=== PATIENT | female | born 1940 | race Two or more races ===

== ENCOUNTER 2017-09-28 13:13 | Emergency (ER) | payer OTHER, MEDICAID ==
[2017-09-28 13:43] LABS: ADD MAN DIFF? NO
[2017-09-28] MEDS: SOD CHLORIDE 0.9% 1,000 ML IV (13:44)
[2017-09-28 13:45] LABS: WHITE BLOOD COUNT 7.5 10^3/ul (4.8-10.8)
[2017-09-28 13:45] LABS: BASOPHILS % 0.1 % (0.0-2.0); EOSINOPHILS # 0.3 10^3/ul (0.0-0.5); EOSINOPHILS % 4.6 % (0.0-7.0); HEMATOCRIT 35.9 % (37.0-47.0); LYMPHOCYTES # 2.3 10^3/ul (0.8-2.9); LYMPHOCYTES % 30.1 % (15.0-51.0); MEAN CORPUSCULAR HEMOGLOBIN 29.8 pg (29.0-33.0); MEAN CORPUSCULAR HGB CONC 33.4 g/dl (32.0-37.0); MEAN CORPUSCULAR VOLUME 89.1 fl (82.0-101.0); MONOCYTE # 0.7 10^3/ul (0.3-0.9); MONOCYTES % 9.4 % (0.0-11.0); NEUTROPHIL # 4.2 10^3/ul (1.6-7.5); NEUTROPHILS % 55.5 % (39.0-77.0); PLATELET COUNT 221 10^3/UL (140-415); RED BLOOD COUNT 4.03 10^6/ul (4.20-5.40); RED CELL DISTRIBUTION WIDTH 13.6 % (11.5-14.5)
[2017-09-28] MEDS: KETOROLAC 15 MG INJ IV (13:45)
[2017-09-28] MEDS: ONDANSETRON 4 MG INJ IV (13:45)
[2017-09-28 14:05] LABS: ALANINE AMINOTRANSFERASE 30 IU/L (13-69); ALBUMIN 3.7 g/dl (3.3-4.9); ALBUMIN/GLOBULIN RATIO 1.12; ALKALINE PHOSPHATASE 118 IU/L (42-121); ANION GAP 20 (8-16); ASPARTATE AMINO TRANSFERASE 16 IU/L (15-46); BILIRUBIN,INDIRECT 0.2 mg/dl (0-1.1); BILIRUBIN,TOTAL 0.2 mg/dl (0.2-1.3); BLOOD UREA NITROGEN 48 mg/dl (7-20); CALCIUM 8.7 mg/dl (8.4-10.2); CARBON DIOXIDE 21 mmol/L (21-31); CHLORIDE 109 mmol/L (97-110); CREATININE 1.46 mg/dl (0.44-1.00); GLUCOSE 141 mg/dl (70-220); LIPASE 39 U/L (23-300); POTASSIUM 4.4 mmol/L (3.5-5.1); SODIUM 146 mmol/L (135-144)
== END 2017-09-28 16:19 | disposition home or self-care (01) ==
LOC: E/R 13:13
DX: K52.9 Noninfective gastroenteritis and colitis, unspecified (principal); E86.0 Dehydration; E03.9 Hypothyroidism, unspecified; R11.10 Vomiting, unspecified; I12.9 Hypertensive chronic kidney disease with stage 1 through stage 4 chronic kidney disease, or unspecified chronic kidney disease; N18.9 Chronic kidney disease, unspecified; E11.22 Type 2 diabetes mellitus with diabetic chronic kidney disease; Z79.84 Long term (current) use of oral hypoglycemic drugs; Z79.82 Long term (current) use of aspirin
CPT/HCPCS: 36415; 74176; 80053; 83690; 85025; 96374; 96375; 99285-25

== ENCOUNTER 2018-11-03 20:00 | Inpatient (IN) | payer MEDICAID, OTHER ==
[2018-11-03] MEDS: PIPER-TAZO 3.375 GM IV (PMX) 100 ML IVPB (23:18)
[2018-11-03] MEDS: ONDANSETRON 4 MG INJ IV (23:18)
[2018-11-03] MEDS: SOD CHLORIDE 0.9% 500 ML IV (23:19)
[2018-11-03] MEDS: morphine 4 MG/ML VIAL IV (23:19)
[2018-11-03 23:25] LABS: ADD MAN DIFF? NO
[2018-11-03 23:26] LABS: BASOPHIL # 0.1 10^3/ul (0.0-0.1); BASOPHILS % 0.6 % (0.0-2.0); EOSINOPHILS # 0.2 10^3/ul (0.0-0.5); EOSINOPHILS % 1.7 % (0.0-7.0); HEMATOCRIT 39.4 % (37.0-47.0); HEMOGLOBIN 12.2 g/dl (12.0-16.0); LYMPHOCYTES # 1.9 10^3/ul (0.8-2.9); LYMPHOCYTES % 20.8 % (15.0-51.0); MEAN CORPUSCULAR HEMOGLOBIN 28.7 pg (29.0-33.0); MEAN CORPUSCULAR VOLUME 92.7 fl (82.0-101.0); MEAN PLATELET VOLUME 10.4 fl (7.4-10.4); MONOCYTE # 0.7 10^3/ul (0.3-0.9); MONOCYTES % 7.9 % (0.0-11.0); NEUTROPHIL # 6.3 10^3/ul (1.6-7.5); NEUTROPHILS % 67.8 % (39.0-77.0); PLATELET COUNT 312 10^3/UL (140-415); RED BLOOD COUNT 4.25 10^6/ul (4.20-5.40); RED CELL DISTRIBUTION WIDTH 13.4 % (11.5-14.5)
[2018-11-03 23:26] LABS: WHITE BLOOD COUNT 9.3 10^3/ul (4.8-10.8)
[2018-11-03 23:37] LABS: ADD UMIC NO; UR ASCORBIC ACID NEGATIVE (NEGATIVE); UR BILIRUBIN (Dip) NEGATIVE (NEGATIVE); UR BLOOD (Dip) NEGATIVE (NEGATIVE); UR CLARITY CLEAR (CLEAR); UR COLOR STRAW (YELLOW); UR GLUCOSE (Dip) 3+ mg/dL (NEGATIVE); UR KETONES (Dip) NEGATIVE (NEGATIVE); UR LEUKOCYTE ESTERASE (Dip) NEGATIVE Leu/ul (NEGATIVE); UR NITRITE (Dip) NEGATIVE (NEGATIVE); UR SPECIFIC GRAVITY (Dip) 1.017 (1.003-1.030); UR TOTAL PROTEIN (Dip) NEGATIVE (NEGATIVE); UR UROBILINOGEN (Dip) NEGATIVE (NEGATIVE)
[2018-11-03 23:44] LABS: MAGNESIUM 2.2 mg/dl (1.7-2.5)
[2018-11-03 23:44] LABS: PHOSPHORUS 4.5 mg/dl (2.5-4.9)
[2018-11-03 23:45] LABS: ALANINE AMINOTRANSFERASE 20 IU/L (13-69); ALBUMIN 3.1 g/dl (3.3-4.9); ALBUMIN/GLOBULIN RATIO 1.06; ALKALINE PHOSPHATASE 222 IU/L (42-121); ANION GAP 8 (5-13); ASPARTATE AMINO TRANSFERASE 15 IU/L (15-46); BILIRUBIN,INDIRECT 0.2 mg/dl (0-1.1); BILIRUBIN,TOTAL 0.2 mg/dl (0.2-1.3); BLOOD UREA NITROGEN 46 mg/dl (7-20); CALCIUM 8.4 mg/dl (8.4-10.2); CARBON DIOXIDE 22 mmol/L (21-31); CHLORIDE 102 mmol/L (97-110); CREATININE 1.37 mg/dl (0.44-1.00); LIPASE 38 U/L (23-300); POTASSIUM 4.8 mmol/L (3.5-5.1); SODIUM 132 mmol/L (135-144)
[2018-11-03 23:47] LABS: MODE ROOM AIR; MetHgb Venous 0.2 %; Sample Type Blood venous; Site VENOUS LINE; Venous COHb 0.9 %; Venous Fraction OxyHgb 56.3 %; Venous Oxygen Sat 56.9 mmHG (55.0-75.0); Venous Total Hemglobin 11.7 g/dl
[2018-11-03] MEDS ORDERED: D10/0.45% NACL + KCL 30 MEQ 1,000 ML IV (23:49)
[2018-11-03] MEDS ORDERED: NS + KCL 40 MEQ 1,000 ML IV (23:49)
[2018-11-03] MEDS ORDERED: SOD CHLORIDE 0.9% 1,000 ML IV (23:49)
[2018-11-03] MEDS ORDERED: D10/0.45% NACL + KCL 40 MEQ 1,000 ML IV (23:49)
[2018-11-03] MEDS ORDERED: DEXTROSE 10%/0.45% NACL 1,000 ML IV (23:49)
[2018-11-03] MEDS ORDERED: NS + KCL 30 MEQ 1,000 ML IV (23:49)
[2018-11-03 23:51] LABS: GLUCOSE 620 mg/dl (70-220)
[2018-11-04] MEDS ORDERED: INSULIN REGULAR, HUMAN 100 UNIT in SOD CHLORIDE 0.9% 100 ML IV
[2018-11-04] MEDS: LACTATED RINGER'S 760 ML IV (00:05)
[2018-11-04] MEDS: VANCOMYCIN 1 GM (PMX) 250 ML IVPB (00:05)
[2018-11-04] MEDS: SOD CHLORIDE 0.9% 760 ML IV (00:05)
[2018-11-04] MEDS: SOD CHLORIDE 0.9% 1,000 ML IV ×2 (01:19→13:37)
[2018-11-04] MEDS ORDERED: VANCOMYCIN IV PER PHARMACY XX (01:30)
[2018-11-04] MEDS ORDERED: DEXTROSE 50% 50 ML SYRINGE IV ×6 (01:30→06:00)
[2018-11-04] MEDS: ONDANSETRON 4 MG INJ IV ×2 (02:12→06:47)
[2018-11-04] MEDS: morphine 4 MG/ML VIAL IV ×2 (02:13→06:48)
[2018-11-04] MEDS: ACCU-CHEK XX ×5 (03:17→06:29)
[2018-11-04] MEDS: INSULIN HUMAN REGULAR 100 UNIT in SOD CHLORIDE 0.9% 99 ML IV (03:24)
[2018-11-04 05:49] LABS: ADD MAN DIFF? NO
[2018-11-04 05:52] LABS: WHITE BLOOD COUNT 8.5 10^3/ul (4.8-10.8)
[2018-11-04 05:52] LABS: BASOPHIL # 0.1 10^3/ul (0.0-0.1); BASOPHILS % 0.7 % (0.0-2.0); EOSINOPHILS # 0.2 10^3/ul (0.0-0.5); EOSINOPHILS % 1.9 % (0.0-7.0); HEMATOCRIT 35.2 % (37.0-47.0); HEMOGLOBIN 11.1 g/dl (12.0-16.0); LYMPHOCYTES % 23.3 % (15.0-51.0); MEAN CORPUSCULAR HEMOGLOBIN 28.8 pg (29.0-33.0); MEAN CORPUSCULAR HGB CONC 31.5 g/dl (32.0-37.0); MEAN CORPUSCULAR VOLUME 91.2 fl (82.0-101.0); MONOCYTE # 0.8 10^3/ul (0.3-0.9); MONOCYTES % 8.8 % (0.0-11.0); NEUTROPHIL # 5.4 10^3/ul (1.6-7.5); NEUTROPHILS % 63.9 % (39.0-77.0); PLATELET COUNT 278 10^3/UL (140-415); RED BLOOD COUNT 3.86 10^6/ul (4.20-5.40); RED CELL DISTRIBUTION WIDTH 13.3 % (11.5-14.5)
[2018-11-04] MEDS: PIPER-TAZO 3.375 GM IV (PMX) 100 ML IVPB ×3 (05:57→17:08)
[2018-11-04] MEDS ORDERED: PANTOPRAZOLE 40 MG INJ IV (06:00)
[2018-11-04] MEDS ORDERED: GLUCOSE GEL 15 GRAM TUBE PO ×2 (06:00)
[2018-11-04] MEDS ORDERED: GLUCAGON 1 MG INJ IM (06:00)
[2018-11-04] MEDS ORDERED: GLUCOSE GEL 15 GRAM TUBE BUCCAL (06:00)
[2018-11-04] MEDS: INSULIN GLARGINE [LANTus] (100 UNITS/ML) SYG SC (06:28)
[2018-11-04 06:33] LABS: ALANINE AMINOTRANSFERASE 21 IU/L (13-69); ALBUMIN 2.5 g/dl (3.3-4.9); ALBUMIN/GLOBULIN RATIO 0.92; ALKALINE PHOSPHATASE 150 IU/L (42-121); ANION GAP 5 (5-13); ASPARTATE AMINO TRANSFERASE 13 IU/L (15-46); BILIRUBIN,INDIRECT 0.2 mg/dl (0-1.1); BILIRUBIN,TOTAL 0.2 mg/dl (0.2-1.3); BLOOD UREA NITROGEN 34 mg/dl (7-20); CALCIUM 7.7 mg/dl (8.4-10.2); CARBON DIOXIDE 21 mmol/L (21-31); CHLORIDE 114 mmol/L (97-110); CHOL/HDL RATIO 3.7 RATIO; CHOLESTEROL 160 mg/dl (100-200); CREATININE 1.02 mg/dl (0.44-1.00); GLUCOSE 195 mg/dl (70-220); HDL CHOLESTEROL 43 mg/dl (33-92); LDL CHOLESTEROL,CALCULATED 83 mg/dl; POTASSIUM 4.3 mmol/L (3.5-5.1); SODIUM 140 mmol/L (135-144); TOTAL PROTEIN 5.2 g/dl (6.1-8.1); TRIGLYCERIDES 170 mg/dl (0-149)
[2018-11-04] MEDS: INSULIN ASPART [NOVOLOG] 3 ML PEN SC ×5 (08:00→22:56)
[2018-11-04] MEDS: LEVOTHYROXINE 137 MCG TAB PO (08:08)
[2018-11-04] MEDS: AMLODIPINE 10 MG TAB PO (09:00)
[2018-11-04] MEDS ORDERED: INSULIN LISPRO 4 UNIT SQ (09:00)
[2018-11-04] MEDS: DOCUSATE SODIUM 100 MG CAP PO (09:00)
[2018-11-04 09:31] LABS: HEMOGLOBIN A1C > 14.0 % (0-5.9)
[2018-11-04] MEDS: FERROUS SULFATE (EC) 325 MG TAB PO (09:31)
[2018-11-04] MEDS: FAMOTIDINE 20 MG INJ IV (09:31)
[2018-11-04 11:41] LABS: FREE T4 (FREE THYROXINE) 0.39 ng/dl (0.78-2.44)
[2018-11-04 11:44] LABS: FREE T3 2.36 pg/ml (2.77-5.27)
[2018-11-04 11:44] LABS: T4 (THYROXINE) 2.1 ug/dl (5.5-11.0)
[2018-11-04] MEDS ORDERED: ACCU-CHEK XX (17:00)
[2018-11-04] MEDS: LIDOCAINE 1% (MPF) 30 ML INJ (20:09)
[2018-11-04] MEDS ORDERED: METOCLOPRAMIDE 10 MG INJ IV (21:30)
[2018-11-04] MEDS ORDERED: MEPERIDINE 25 MG INJ IV (21:30)
[2018-11-04] MEDS ORDERED: ONDANSETRON 4 MG INJ IV (21:30)
[2018-11-04] MEDS ORDERED: HYDROmorphONE 1 MG/5 ML IV SYRINGE IV ×2 (21:30)
[2018-11-04] MEDS ORDERED: FENTAnyl 50 MCG/ML VIAL IV (21:30)
[2018-11-04] MEDS ORDERED: DIPHENHYDRAMINE 50 MG INJ IV (21:30)
[2018-11-04] MEDS: MONTELUKAST 10 MG TAB PO (23:00)
[2018-11-04] MEDS: VANCOMYCIN 1 GM 250 ML IVPB (23:00)
[2018-11-04] MEDS: ATORVASTATIN 40 MG TAB PO (23:00)
[2018-11-05] MEDS: SOD CHLORIDE 0.9% 1,000 ML IV ×2 (00:57→11:51)
[2018-11-05] MEDS: PIPER-TAZO 3.375 GM IV (PMX) 100 ML IVPB ×4 (01:04→17:53)
[2018-11-05] MEDS: morphine 4 MG/ML VIAL IV ×3 (01:09→11:46)
[2018-11-05] MEDS ORDERED: ACCU-CHEK XX (02:00)
[2018-11-05] MEDS: ACCU-CHEK XX (02:51)
[2018-11-05] MEDS: HYDROCODONE/APAP (5/325) TAB PO (03:34)
[2018-11-05 06:07] LABS: ADD MAN DIFF? NO
[2018-11-05 06:17] LABS: BASOPHIL # 0.1 10^3/ul (0.0-0.1); BASOPHILS % 0.5 % (0.0-2.0); EOSINOPHILS # 0.2 10^3/ul (0.0-0.5); EOSINOPHILS % 2.3 % (0.0-7.0); HEMATOCRIT 34.2 % (37.0-47.0); HEMOGLOBIN 10.4 g/dl (12.0-16.0); LYMPHOCYTES # 1.6 10^3/ul (0.8-2.9); MEAN CORPUSCULAR HEMOGLOBIN 28.7 pg (29.0-33.0); MEAN CORPUSCULAR HGB CONC 30.4 g/dl (32.0-37.0); MEAN CORPUSCULAR VOLUME 94.2 fl (82.0-101.0); MONOCYTE # 0.8 10^3/ul (0.3-0.9); MONOCYTES % 8.3 % (0.0-11.0); NEUTROPHIL # 6.4 10^3/ul (1.6-7.5); NEUTROPHILS % 70.6 % (39.0-77.0); PLATELET COUNT 290 10^3/UL (140-415); RED BLOOD COUNT 3.63 10^6/ul (4.20-5.40); RED CELL DISTRIBUTION WIDTH 13.6 % (11.5-14.5)
[2018-11-05 06:17] LABS: WHITE BLOOD COUNT 9.1 10^3/ul (4.8-10.8)
[2018-11-05 06:38] LABS: ALANINE AMINOTRANSFERASE 22 IU/L (13-69); ALBUMIN 2.4 g/dl (3.3-4.9); ALBUMIN/GLOBULIN RATIO 0.85; ALKALINE PHOSPHATASE 120 IU/L (42-121); ANION GAP 4 (5-13); ASPARTATE AMINO TRANSFERASE 19 IU/L (15-46); BILIRUBIN,INDIRECT 0.2 mg/dl (0-1.1); BILIRUBIN,TOTAL 0.2 mg/dl (0.2-1.3); BLOOD UREA NITROGEN 18 mg/dl (7-20); CALCIUM 7.6 mg/dl (8.4-10.2); CARBON DIOXIDE 21 mmol/L (21-31); CHLORIDE 114 mmol/L (97-110); CREATININE 0.91 mg/dl (0.44-1.00); GLUCOSE 189 mg/dl (70-220); POTASSIUM 4.5 mmol/L (3.5-5.1); SODIUM 139 mmol/L (135-144); TOTAL PROTEIN 5.2 g/dl (6.1-8.1)
[2018-11-05] MEDS: LEVOTHYROXINE 137 MCG TAB PO (07:03)
[2018-11-05] MEDS: FERROUS SULFATE (EC) 325 MG TAB PO (08:05)
[2018-11-05] MEDS: DOCUSATE SODIUM 100 MG CAP PO (08:05)
[2018-11-05] MEDS: FAMOTIDINE 20 MG INJ IV (08:05)
[2018-11-05] MEDS: DAKINS 0.0125%(1/40) 473 ML SOLUTION TP (08:06)
[2018-11-05] MEDS: AMLODIPINE 5 MG TAB PO (08:06)
[2018-11-05] MEDS: INSULIN ASPART [NOVOLOG] 3 ML PEN SC ×5 (08:24→22:23)
[2018-11-05] MEDS: ASPIRIN 81 MG TAB PO (14:55)
[2018-11-05] MEDS: MONTELUKAST 10 MG TAB PO (22:24)
[2018-11-05] MEDS: ATORVASTATIN 40 MG TAB PO (22:24)
[2018-11-06] MEDS: morphine 4 MG/ML VIAL IV ×3 (00:08→16:42)
[2018-11-06] MEDS: VANCOMYCIN HCL 1.5 GM in SOD CHLORIDE 0.9% 250 ML IVPB (00:10)
[2018-11-06] MEDS: ACCU-CHEK XX (02:00)
[2018-11-06] MEDS: SOD CHLORIDE 0.9% 1,000 ML IV ×3 (03:37→16:57)
[2018-11-06] MEDS ORDERED: INSULIN ASPART [NOVOLOG] 3 ML PEN SC (05:00)
[2018-11-06 05:37] LABS: ADD MAN DIFF? NO
[2018-11-06 05:38] LABS: WHITE BLOOD COUNT 8.7 10^3/ul (4.8-10.8)
[2018-11-06 05:38] LABS: BASOPHILS % 0.3 % (0.0-2.0); EOSINOPHILS # 0.2 10^3/ul (0.0-0.5); EOSINOPHILS % 2.2 % (0.0-7.0); HEMATOCRIT 32.5 % (37.0-47.0); HEMOGLOBIN 9.9 g/dl (12.0-16.0); LYMPHOCYTES # 1.8 10^3/ul (0.8-2.9); LYMPHOCYTES % 20.1 % (15.0-51.0); MEAN CORPUSCULAR HEMOGLOBIN 28.6 pg (29.0-33.0); MEAN CORPUSCULAR HGB CONC 30.5 g/dl (32.0-37.0); MEAN CORPUSCULAR VOLUME 93.9 fl (82.0-101.0); MEAN PLATELET VOLUME 9.9 fl (7.4-10.4); MONOCYTE # 0.8 10^3/ul (0.3-0.9); MONOCYTES % 8.9 % (0.0-11.0); NEUTROPHIL # 5.8 10^3/ul (1.6-7.5); NEUTROPHILS % 66.9 % (39.0-77.0); PLATELET COUNT 260 10^3/UL (140-415); RED BLOOD COUNT 3.46 10^6/ul (4.20-5.40); RED CELL DISTRIBUTION WIDTH 13.7 % (11.5-14.5)
[2018-11-06] MEDS: PIPER-TAZO 3.375 GM IV (PMX) 100 ML IVPB ×5 (05:47→23:13)
[2018-11-06] MEDS: Insulin NOVOLOG SS MILD Algorithm (NPO/TPN/ENTERAL FEEDS) SC ×5 (05:49→20:26)
[2018-11-06] MEDS: LEVOTHYROXINE 137 MCG TAB PO (06:00)
[2018-11-06 06:37] LABS: ALANINE AMINOTRANSFERASE 22 IU/L (13-69); ALBUMIN 2.3 g/dl (3.3-4.9); ALBUMIN/GLOBULIN RATIO 0.88; ALKALINE PHOSPHATASE 108 IU/L (42-121); ANION GAP 3 (5-13); ASPARTATE AMINO TRANSFERASE 22 IU/L (15-46); BILIRUBIN,INDIRECT 0.3 mg/dl (0-1.1); BILIRUBIN,TOTAL 0.3 mg/dl (0.2-1.3); BLOOD UREA NITROGEN 19 mg/dl (7-20); CALCIUM 7.8 mg/dl (8.4-10.2); CARBON DIOXIDE 24 mmol/L (21-31); CHLORIDE 110 mmol/L (97-110); GLUCOSE 202 mg/dl (70-220); POTASSIUM 4.8 mmol/L (3.5-5.1); SODIUM 137 mmol/L (135-144); TOTAL PROTEIN 4.9 g/dl (6.1-8.1)
[2018-11-06] MEDS: INSULIN ASPART [NOVOLOG] 3 ML PEN SC (08:00)
[2018-11-06] MEDS: FAMOTIDINE 20 MG INJ IV (08:49)
[2018-11-06] MEDS: AMLODIPINE 5 MG TAB PO (08:50)
[2018-11-06] MEDS: FERROUS SULFATE (EC) 325 MG TAB PO (08:50)
[2018-11-06] MEDS: DOCUSATE SODIUM 100 MG CAP PO (08:50)
[2018-11-06] MEDS: ASPIRIN 81 MG TAB PO (08:51)
[2018-11-06] MEDS: DAKINS 0.0125%(1/40) 473 ML SOLUTION TP ×2 (09:00→18:00)
[2018-11-06] MEDS ORDERED: HEPARIN 1000 UNITS/NS (A-LINE) 1,000 ML (09:31)
[2018-11-06] MEDS ORDERED: LIDOCAINE 1% (MDV) 20 ML INJ (09:32)
[2018-11-06] MEDS ORDERED: IODIXANOL LOCM 100 ML BTL (09:33)
[2018-11-06] MEDS ORDERED: HEPARIN 1000 UNITS/ML 10 ML INJ (10:32)
[2018-11-06] MEDS: ATORVASTATIN 40 MG TAB PO (20:22)
[2018-11-06] MEDS: HYDROCODONE/APAP (5/325) TAB PO (20:22)
[2018-11-06] MEDS: MONTELUKAST 10 MG TAB PO (20:22)
[2018-11-06] MEDS: INSULIN GLARGINE [LANTus] (100 UNITS/ML) SYG SC (20:27)
[2018-11-06] MEDS: SENNA TAB PO (23:13)
[2018-11-07] MEDS: VANCOMYCIN HCL 1.5 GM in SOD CHLORIDE 0.9% 250 ML IVPB (00:01)
[2018-11-07] MEDS: ACCUCHECK AT 2AM (Patients on SS coverage) XX (01:41)
[2018-11-07] MEDS: GUAIFENESIN 20 MG/ML 5ML CUP PO ×5 (04:20→23:32)
[2018-11-07] MEDS: HYDROCODONE/APAP (5/325) TAB PO ×2 (04:21→23:17)
[2018-11-07 05:57] LABS: ADD MAN DIFF? NO
[2018-11-07 06:13] LABS: BASOPHILS % 0.4 % (0.0-2.0); EOSINOPHILS # 0.1 10^3/ul (0.0-0.5); EOSINOPHILS % 1.5 % (0.0-7.0); HEMATOCRIT 30.8 % (37.0-47.0); HEMOGLOBIN 9.4 g/dl (12.0-16.0); LYMPHOCYTES # 1.1 10^3/ul (0.8-2.9); MEAN CORPUSCULAR HEMOGLOBIN 28.7 pg (29.0-33.0); MEAN CORPUSCULAR HGB CONC 30.5 g/dl (32.0-37.0); MEAN CORPUSCULAR VOLUME 94.2 fl (82.0-101.0); MEAN PLATELET VOLUME 9.9 fl (7.4-10.4); MONOCYTE # 0.7 10^3/ul (0.3-0.9); NEUTROPHIL # 7.1 10^3/ul (1.6-7.5); NEUTROPHILS % 76.9 % (39.0-77.0); PLATELET COUNT 241 10^3/UL (140-415); RED BLOOD COUNT 3.27 10^6/ul (4.20-5.40); RED CELL DISTRIBUTION WIDTH 13.4 % (11.5-14.5)
[2018-11-07 06:13] LABS: WHITE BLOOD COUNT 9.2 10^3/ul (4.8-10.8)
[2018-11-07] MEDS: LEVOTHYROXINE 137 MCG TAB PO (06:22)
[2018-11-07] MEDS: PIPER-TAZO 3.375 GM IV (PMX) 100 ML IVPB ×5 (06:22→23:16)
[2018-11-07 06:40] LABS: ALANINE AMINOTRANSFERASE 23 IU/L (13-69); ALBUMIN 2.3 g/dl (3.3-4.9); ALBUMIN/GLOBULIN RATIO 0.82; ALKALINE PHOSPHATASE 114 IU/L (42-121); ANION GAP 4 (5-13); ASPARTATE AMINO TRANSFERASE 20 IU/L (15-46); BILIRUBIN,INDIRECT 0.4 mg/dl (0-1.1); BILIRUBIN,TOTAL 0.4 mg/dl (0.2-1.3); BLOOD UREA NITROGEN 18 mg/dl (7-20); CALCIUM 7.9 mg/dl (8.4-10.2); CARBON DIOXIDE 23 mmol/L (21-31); CHLORIDE 110 mmol/L (97-110); GLUCOSE 191 mg/dl (70-220); POTASSIUM 4.5 mmol/L (3.5-5.1); SODIUM 137 mmol/L (135-144); TOTAL PROTEIN 5.1 g/dl (6.1-8.1)
[2018-11-07] MEDS: AMLODIPINE 5 MG TAB PO (08:42)
[2018-11-07] MEDS: DOCUSATE SODIUM 100 MG CAP PO (08:42)
[2018-11-07] MEDS: ASPIRIN 81 MG TAB PO (08:43)
[2018-11-07] MEDS: FAMOTIDINE 20 MG INJ IV (08:43)
[2018-11-07] MEDS: SENNA TAB PO ×2 (08:43→20:18)
[2018-11-07] MEDS: FERROUS SULFATE (EC) 325 MG TAB PO (08:43)
[2018-11-07] MEDS: INSULIN ASPART [NOVOLOG] 3 ML PEN SC ×5 (08:44→20:26)
[2018-11-07] MEDS: ACETAMINOPHEN 650MG/20.3ML CUP PO (08:53)
[2018-11-07] MEDS: DAKINS 0.0125%(1/40) 473 ML SOLUTION TP (08:54)
[2018-11-07] MEDS: morphine 4 MG/ML VIAL IV ×2 (09:46→20:17)
[2018-11-07] MEDS: FUROSEMIDE 20 MG INJ IV (14:33)
[2018-11-07] MEDS: ALBUTEROL 0.083% (NEB) 2.5 MG/3 ML AMP HHN (15:57)
[2018-11-07] MEDS: MONTELUKAST 10 MG TAB PO (20:18)
[2018-11-07] MEDS: ATORVASTATIN 40 MG TAB PO (20:18)
[2018-11-07] MEDS: HEPARIN 5,000 UNIT/1 ML VIAL SC (20:20)
[2018-11-07] MEDS: INSULIN GLARGINE [LANTus] (100 UNITS/ML) SYG SC (20:29)
[2018-11-07] MEDS: POLYETHYLENE GLYCOL 17 GM PACKET PO (23:16)
[2018-11-08] MEDS: ACCUCHECK AT 2AM (Patients on SS coverage) XX (02:00)
[2018-11-08] MEDS: HYDROCODONE/APAP (5/325) TAB PO ×2 (04:24→20:31)
[2018-11-08] MEDS ORDERED: LEVOTHYROXINE 150 MCG TAB (05:24)
[2018-11-08] MEDS: PIPER-TAZO 3.375 GM IV (PMX) 100 ML IVPB ×4 (05:57→23:52)
[2018-11-08] MEDS: LEVOTHYROXINE 150 MCG TAB PO (06:00)
[2018-11-08] MEDS ORDERED: VANCOMYCIN HCL 1.5 GM in SOD CHLORIDE 0.9% 250 ML IVPB (06:00)
[2018-11-08] MEDS: INSULIN ASPART [NOVOLOG] 3 ML PEN SC ×5 (08:00→20:24)
[2018-11-08] MEDS: morphine 4 MG/ML VIAL IV ×2 (08:31→17:02)
[2018-11-08] MEDS: DAKINS 0.0125%(1/40) 473 ML SOLUTION TP (09:00)
[2018-11-08] MEDS: HEPARIN 5,000 UNIT/1 ML VIAL SC ×2 (09:01→20:26)
[2018-11-08] MEDS: ASPIRIN 81 MG TAB PO (09:06)
[2018-11-08] MEDS: FERROUS SULFATE (EC) 325 MG TAB PO (09:06)
[2018-11-08] MEDS: FAMOTIDINE 20 MG INJ IV (09:06)
[2018-11-08] MEDS: DOCUSATE SODIUM 100 MG CAP PO (09:06)
[2018-11-08] MEDS: SENNA TAB PO (09:06)
[2018-11-08] MEDS: AMLODIPINE 5 MG TAB PO (09:07)
[2018-11-08] MEDS: ALBUTEROL 0.083% (NEB) 2.5 MG/3 ML AMP HHN ×3 (09:22→23:44)
[2018-11-08] MEDS: POLYETHYLENE GLYCOL 17 GM PACKET PO ×2 (11:18→20:31)
[2018-11-08] MEDS: GUAIFENESIN 20 MG/ML 5ML CUP PO (11:18)
[2018-11-08] MEDS: ATORVASTATIN 40 MG TAB PO (20:22)
[2018-11-08] MEDS: MONTELUKAST 10 MG TAB PO (20:22)
[2018-11-08] MEDS: INSULIN GLARGINE [LANTus] (100 UNITS/ML) SYG SC (20:25)
[2018-11-09] MEDS: ACCUCHECK AT 2AM (Patients on SS coverage) XX (01:27)
[2018-11-09 05:56] LABS: ADD MAN DIFF? NO
[2018-11-09] MEDS: PIPER-TAZO 3.375 GM IV (PMX) 100 ML IVPB ×3 (05:57→17:53)
[2018-11-09] MEDS: HYDROCODONE/APAP (5/325) TAB PO ×3 (05:57→23:57)
[2018-11-09] MEDS: GUAIFENESIN 20 MG/ML 5ML CUP PO ×4 (05:57→21:06)
[2018-11-09 06:00] LABS: WHITE BLOOD COUNT 8.4 10^3/ul (4.8-10.8)
[2018-11-09 06:00] LABS: BASOPHIL # 0.1 10^3/ul (0.0-0.1); BASOPHILS % 0.6 % (0.0-2.0); EOSINOPHILS # 0.2 10^3/ul (0.0-0.5); EOSINOPHILS % 2.3 % (0.0-7.0); HEMATOCRIT 31.2 % (37.0-47.0); HEMOGLOBIN 9.6 g/dl (12.0-16.0); LYMPHOCYTES # 1.3 10^3/ul (0.8-2.9); LYMPHOCYTES % 15.6 % (15.0-51.0); MEAN CORPUSCULAR HEMOGLOBIN 28.4 pg (29.0-33.0); MEAN CORPUSCULAR HGB CONC 30.8 g/dl (32.0-37.0); MEAN CORPUSCULAR VOLUME 92.3 fl (82.0-101.0); MEAN PLATELET VOLUME 9.9 fl (7.4-10.4); MONOCYTE # 0.7 10^3/ul (0.3-0.9); NEUTROPHILS % 72.2 % (39.0-77.0); PLATELET COUNT 321 10^3/UL (140-415); RED BLOOD COUNT 3.38 10^6/ul (4.20-5.40); RED CELL DISTRIBUTION WIDTH 13.5 % (11.5-14.5)
[2018-11-09] MEDS: LEVOTHYROXINE 150 MCG TAB PO (06:02)
[2018-11-09 07:58] LABS: ALBUMIN 2.7 g/dl (3.3-4.9); ANION GAP 5 (5-13); BLOOD UREA NITROGEN 21 mg/dl (7-20); CALCIUM 8.3 mg/dl (8.4-10.2); CARBON DIOXIDE 26 mmol/L (21-31); CHLORIDE 104 mmol/L (97-110); CREATININE 0.99 mg/dl (0.44-1.00); GLUCOSE 142 mg/dl (70-220); PHOSPHORUS 3.4 mg/dl (2.5-4.9); SODIUM 135 mmol/L (135-144)
[2018-11-09] MEDS: INSULIN ASPART [NOVOLOG] 3 ML PEN SC ×5 (08:00→21:00)
[2018-11-09 08:18] LABS: POTASSIUM 4.9 mmol/L (3.5-5.1)
[2018-11-09] MEDS: FERROUS SULFATE (EC) 325 MG TAB PO (08:39)
[2018-11-09] MEDS: AMLODIPINE 5 MG TAB PO (08:40)
[2018-11-09] MEDS: ASPIRIN 81 MG TAB PO (08:40)
[2018-11-09] MEDS: FAMOTIDINE 20 MG INJ IV (08:40)
[2018-11-09] MEDS: HEPARIN 5,000 UNIT/1 ML VIAL SC ×2 (08:41→21:08)
[2018-11-09] MEDS: DAKINS 0.0125%(1/40) 473 ML SOLUTION TP (08:42)
[2018-11-09] MEDS: morphine 4 MG/ML VIAL IV (11:42)
[2018-11-09] MEDS: ALBUTEROL/IPRATROPIUM (NEB) 3 ML AMP HHN ×2 (16:13→19:48)
[2018-11-09] MEDS: FUROSEMIDE 20 MG INJ IV (17:52)
[2018-11-09] MEDS: METHYLPREDNISOLONE 125 MG INJ IV (17:52)
[2018-11-09] MEDS: BUDESONIDE (NEB) 0.5MG/2ML AMP HHN (19:59)
[2018-11-09] MEDS: ATORVASTATIN 40 MG TAB PO (21:05)
[2018-11-09] MEDS: MONTELUKAST 10 MG TAB PO (21:05)
[2018-11-09] MEDS: POLYETHYLENE GLYCOL 17 GM PACKET PO (21:05)
[2018-11-09] MEDS: INSULIN GLARGINE [LANTus] (100 UNITS/ML) SYG SC (21:09)
[2018-11-10] MEDS: ACCUCHECK AT 2AM (Patients on SS coverage) XX (02:00)
[2018-11-10 06:01] LABS: ADD MAN DIFF? NO
[2018-11-10 06:09] LABS: BASOPHILS % 0.1 % (0.0-2.0); HEMATOCRIT 30.3 % (37.0-47.0); HEMOGLOBIN 9.5 g/dl (12.0-16.0); LYMPHOCYTES # 0.7 10^3/ul (0.8-2.9); LYMPHOCYTES % 10.9 % (15.0-51.0); MEAN CORPUSCULAR HEMOGLOBIN 28.4 pg (29.0-33.0); MEAN CORPUSCULAR HGB CONC 31.4 g/dl (32.0-37.0); MEAN CORPUSCULAR VOLUME 90.4 fl (82.0-101.0); MEAN PLATELET VOLUME 9.7 fl (7.4-10.4); MONOCYTE # 0.1 10^3/ul (0.3-0.9); MONOCYTES % 1.6 % (0.0-11.0); NEUTROPHIL # 5.8 10^3/ul (1.6-7.5); NEUTROPHILS % 85.9 % (39.0-77.0); PLATELET COUNT 331 10^3/UL (140-415); RED BLOOD COUNT 3.35 10^6/ul (4.20-5.40); RED CELL DISTRIBUTION WIDTH 13.2 % (11.5-14.5)
[2018-11-10 06:09] LABS: WHITE BLOOD COUNT 6.8 10^3/ul (4.8-10.8)
[2018-11-10] MEDS: GUAIFENESIN 20 MG/ML 5ML CUP PO (06:26)
[2018-11-10] MEDS: LEVOTHYROXINE 150 MCG TAB PO (06:26)
[2018-11-10] MEDS: PIPER-TAZO 3.375 GM IV (PMX) 100 ML IVPB ×4 (06:26→17:31)
[2018-11-10 06:44] LABS: ALBUMIN 2.6 g/dl (3.3-4.9); ANION GAP 8 (5-13); BLOOD UREA NITROGEN 19 mg/dl (7-20); CARBON DIOXIDE 26 mmol/L (21-31); CHLORIDE 103 mmol/L (97-110); CREATININE 0.94 mg/dl (0.44-1.00); GLUCOSE 179 mg/dl (70-220); PHOSPHORUS 4.7 mg/dl (2.5-4.9); POTASSIUM 4.2 mmol/L (3.5-5.1); SODIUM 137 mmol/L (135-144)
[2018-11-10] MEDS: ALBUTEROL/IPRATROPIUM (NEB) 3 ML AMP HHN ×3 (08:00→19:59)
[2018-11-10] MEDS: FERROUS SULFATE (EC) 325 MG TAB PO (08:24)
[2018-11-10] MEDS: FAMOTIDINE 20 MG TAB PO (08:24)
[2018-11-10] MEDS: AMLODIPINE 5 MG TAB PO (08:24)
[2018-11-10] MEDS: ASPIRIN 81 MG TAB PO (08:24)
[2018-11-10] MEDS: INSULIN ASPART [NOVOLOG] 3 ML PEN SC ×5 (08:26→22:13)
[2018-11-10] MEDS: HEPARIN 5,000 UNIT/1 ML VIAL SC ×2 (08:27→20:59)
[2018-11-10] MEDS: BUDESONIDE (NEB) 0.5MG/2ML AMP HHN ×2 (08:55→19:59)
[2018-11-10] MEDS: DAKINS 0.0125%(1/40) 473 ML SOLUTION TP (09:00)
[2018-11-10] MEDS: ATORVASTATIN 40 MG TAB PO (20:57)
[2018-11-10] MEDS: MONTELUKAST 10 MG TAB PO (20:57)
[2018-11-10] MEDS: INSULIN GLARGINE [LANTus] (100 UNITS/ML) SYG SC (22:12)
[2018-11-10] MEDS: HYDROCODONE/APAP (5/325) TAB PO (22:36)
[2018-11-11] MEDS: PIPER-TAZO 3.375 GM IV (PMX) 100 ML IVPB ×5 (00:14→23:58)
[2018-11-11] MEDS: ACCU-CHEK XX ×2 (02:00→20:54)
[2018-11-11] MEDS: HYDROCODONE/APAP (5/325) TAB PO (04:39)
[2018-11-11 05:45] LABS: ADD MAN DIFF? NO
[2018-11-11 05:54] LABS: BASOPHILS % 0.1 % (0.0-2.0); HEMATOCRIT 27.2 % (37.0-47.0); HEMOGLOBIN 8.8 g/dl (12.0-16.0); LYMPHOCYTES % 15.1 % (15.0-51.0); MEAN CORPUSCULAR HEMOGLOBIN 29.1 pg (29.0-33.0); MEAN CORPUSCULAR HGB CONC 32.4 g/dl (32.0-37.0); MEAN CORPUSCULAR VOLUME 90.1 fl (82.0-101.0); MEAN PLATELET VOLUME 9.8 fl (7.4-10.4); MONOCYTE # 0.7 10^3/ul (0.3-0.9); MONOCYTES % 9.6 % (0.0-11.0); NEUTROPHILS % 74.3 % (39.0-77.0); PLATELET COUNT 373 10^3/UL (140-415); RED BLOOD COUNT 3.02 10^6/ul (4.20-5.40); RED CELL DISTRIBUTION WIDTH 13.3 % (11.5-14.5)
[2018-11-11 05:54] LABS: WHITE BLOOD COUNT 6.8 10^3/ul (4.8-10.8)
[2018-11-11] MEDS: LEVOTHYROXINE 150 MCG TAB PO (06:01)
[2018-11-11 06:25] LABS: ALBUMIN 2.5 g/dl (3.3-4.9); ANION GAP 3 (5-13); BLOOD UREA NITROGEN 21 mg/dl (7-20); CALCIUM 8.1 mg/dl (8.4-10.2); CARBON DIOXIDE 29 mmol/L (21-31); CHLORIDE 105 mmol/L (97-110); CREATININE 0.79 mg/dl (0.44-1.00); GLUCOSE 278 mg/dl (70-220); MAGNESIUM 2.2 mg/dl (1.7-2.5); PHOSPHORUS 2.7 mg/dl (2.5-4.9); POTASSIUM 4.4 mmol/L (3.5-5.1); SODIUM 137 mmol/L (135-144)
[2018-11-11 06:40] LABS: B-TYPE NATRIURETIC PEPTIDE 3710 PG/ML (0-450)
[2018-11-11] MEDS: INSULIN ASPART [NOVOLOG] 3 ML PEN SC ×7 (08:22→20:50)
[2018-11-11] MEDS: ALBUTEROL/IPRATROPIUM (NEB) 3 ML AMP HHN ×3 (08:59→20:15)
[2018-11-11] MEDS: DAKINS 0.0125%(1/40) 473 ML SOLUTION TP (09:00)
[2018-11-11] MEDS: BUDESONIDE (NEB) 0.5MG/2ML AMP HHN ×2 (09:09→20:16)
[2018-11-11] MEDS: FAMOTIDINE 20 MG TAB PO (09:38)
[2018-11-11] MEDS: AMLODIPINE 5 MG TAB PO (09:38)
[2018-11-11] MEDS: ASPIRIN 81 MG TAB PO (09:38)
[2018-11-11] MEDS: FERROUS SULFATE (EC) 325 MG TAB PO (09:38)
[2018-11-11] MEDS: HEPARIN 5,000 UNIT/1 ML VIAL SC ×2 (09:40→20:54)
[2018-11-11] MEDS: FUROSEMIDE 20 MG TAB PO (15:01)
[2018-11-11] MEDS: ATORVASTATIN 40 MG TAB PO (20:51)
[2018-11-11] MEDS: MONTELUKAST 10 MG TAB PO (20:51)
[2018-11-11] MEDS: INSULIN GLARGINE [LANTus] (100 UNITS/ML) SYG SC (20:53)
[2018-11-12] MEDS: HYDROCODONE/APAP (5/325) TAB PO (00:01)
[2018-11-12] MEDS: GUAIFENESIN 20 MG/ML 5ML CUP PO ×2 (00:14→07:08)
[2018-11-12] MEDS: LEVOTHYROXINE 150 MCG TAB PO (06:02)
[2018-11-12] MEDS: PIPER-TAZO 3.375 GM IV (PMX) 100 ML IVPB ×3 (06:02→21:14)
[2018-11-12 07:16] LABS: ADD MAN DIFF? NO
[2018-11-12 07:22] LABS: WHITE BLOOD COUNT 9.3 10^3/ul (4.8-10.8)
[2018-11-12 07:22] LABS: BASOPHILS % 0.4 % (0.0-2.0); EOSINOPHILS # 0.1 10^3/ul (0.0-0.5); EOSINOPHILS % 1.2 % (0.0-7.0); HEMOGLOBIN 9.7 g/dl (12.0-16.0); LYMPHOCYTES # 1.5 10^3/ul (0.8-2.9); LYMPHOCYTES % 16.4 % (15.0-51.0); MEAN CORPUSCULAR HEMOGLOBIN 28.6 pg (29.0-33.0); MEAN CORPUSCULAR HGB CONC 31.3 g/dl (32.0-37.0); MEAN CORPUSCULAR VOLUME 91.4 fl (82.0-101.0); MEAN PLATELET VOLUME 9.6 fl (7.4-10.4); MONOCYTE # 0.5 10^3/ul (0.3-0.9); MONOCYTES % 5.7 % (0.0-11.0); NEUTROPHILS % 75.4 % (39.0-77.0); PLATELET COUNT 417 10^3/UL (140-415); RED BLOOD COUNT 3.39 10^6/ul (4.20-5.40); RED CELL DISTRIBUTION WIDTH 13.6 % (11.5-14.5)
[2018-11-12 07:39] LABS: ANION GAP 4 (5-13); BLOOD UREA NITROGEN 19 mg/dl (7-20); CALCIUM 8.5 mg/dl (8.4-10.2); CARBON DIOXIDE 36 mmol/L (21-31); CHLORIDE 103 mmol/L (97-110); CREATININE 1.02 mg/dl (0.44-1.00); GLUCOSE 110 mg/dl (70-220); MAGNESIUM 2.1 mg/dl (1.7-2.5); PHOSPHORUS 2.9 mg/dl (2.5-4.9); POTASSIUM 3.8 mmol/L (3.5-5.1); SODIUM 143 mmol/L (135-144)
[2018-11-12] MEDS: ALBUTEROL/IPRATROPIUM (NEB) 3 ML AMP HHN ×3 (07:40→20:42)
[2018-11-12] MEDS: INSULIN ASPART [NOVOLOG] 3 ML PEN SC ×7 (08:00→20:59)
[2018-11-12] MEDS: DAKINS 0.0125%(1/40) 473 ML SOLUTION TP (09:00)
[2018-11-12] MEDS: HEPARIN 5,000 UNIT/1 ML VIAL SC ×2 (09:30→21:00)
[2018-11-12] MEDS: ASPIRIN 81 MG TAB PO (09:30)
[2018-11-12] MEDS: FERROUS SULFATE (EC) 325 MG TAB PO (09:30)
[2018-11-12] MEDS: FAMOTIDINE 20 MG TAB PO (09:30)
[2018-11-12] MEDS: HYDROCHLOROTHIAZIDE 12.5 MG CAP PO (09:34)
[2018-11-12] MEDS ORDERED: VANCOMYCIN IV PER PHARMACY XX (10:30)
[2018-11-12] MEDS: AZITHROMYCIN 500MG/NS (PMX) 250 ML IVPB (12:16)
[2018-11-12] MEDS: METHYLPREDNISOLONE 40 MG INJ IV ×2 (12:36→21:03)
[2018-11-12] MEDS: BUDESONIDE (NEB) 0.5MG/2ML AMP HHN ×2 (13:34→20:42)
[2018-11-12] MEDS: VANCOMYCIN HCL 1.75 GM in SOD CHLORIDE 0.9% 500 ML IVPB (16:22)
[2018-11-12] MEDS: INSULIN GLARGINE [LANTus] (100 UNITS/ML) SYG SC (20:58)
[2018-11-12] MEDS: ATORVASTATIN 40 MG TAB PO (21:02)
[2018-11-12] MEDS: MONTELUKAST 10 MG TAB PO (21:02)
[2018-11-13] MEDS: PIPER-TAZO 3.375 GM IV (PMX) 100 ML IVPB ×4 (00:13→17:57)
[2018-11-13] MEDS: ACCU-CHEK XX (02:23)
[2018-11-13] MEDS: LEVOTHYROXINE 150 MCG TAB PO (04:49)
[2018-11-13 05:35] LABS: ADD MAN DIFF? NO
[2018-11-13 05:40] LABS: WHITE BLOOD COUNT 7.2 10^3/ul (4.8-10.8)
[2018-11-13 05:40] LABS: BASOPHILS % 0.1 % (0.0-2.0); HEMATOCRIT 31.1 % (37.0-47.0); HEMOGLOBIN 9.6 g/dl (12.0-16.0); LYMPHOCYTES # 0.7 10^3/ul (0.8-2.9); LYMPHOCYTES % 10.1 % (15.0-51.0); MEAN CORPUSCULAR HEMOGLOBIN 28.2 pg (29.0-33.0); MEAN CORPUSCULAR HGB CONC 30.9 g/dl (32.0-37.0); MEAN CORPUSCULAR VOLUME 91.5 fl (82.0-101.0); MEAN PLATELET VOLUME 9.9 fl (7.4-10.4); MONOCYTE # 0.1 10^3/ul (0.3-0.9); MONOCYTES % 1.9 % (0.0-11.0); NEUTROPHIL # 6.2 10^3/ul (1.6-7.5); NEUTROPHILS % 86.1 % (39.0-77.0); PLATELET COUNT 361 10^3/UL (140-415); RED CELL DISTRIBUTION WIDTH 13.4 % (11.5-14.5)
[2018-11-13 06:10] LABS: ANION GAP 7 (5-13); BLOOD UREA NITROGEN 23 mg/dl (7-20); CALCIUM 8.8 mg/dl (8.4-10.2); CARBON DIOXIDE 35 mmol/L (21-31); CHLORIDE 96 mmol/L (97-110); GLUCOSE 324 mg/dl (70-220); MAGNESIUM 1.9 mg/dl (1.7-2.5); PHOSPHORUS 4.2 mg/dl (2.5-4.9); POTASSIUM 4.4 mmol/L (3.5-5.1); SODIUM 138 mmol/L (135-144)
[2018-11-13] MEDS: INSULIN ASPART [NOVOLOG] 3 ML PEN SC ×7 (08:09→20:27)
[2018-11-13] MEDS: HEPARIN 5,000 UNIT/1 ML VIAL SC ×2 (08:10→20:29)
[2018-11-13] MEDS: METHYLPREDNISOLONE 40 MG INJ IV ×2 (08:10→20:22)
[2018-11-13] MEDS: ALBUTEROL/IPRATROPIUM (NEB) 3 ML AMP HHN ×3 (08:46→21:24)
[2018-11-13] MEDS: BUDESONIDE (NEB) 0.5MG/2ML AMP HHN ×3 (08:46→21:33)
[2018-11-13] MEDS: ASPIRIN 81 MG TAB PO (09:28)
[2018-11-13] MEDS: FERROUS SULFATE (EC) 325 MG TAB PO (09:28)
[2018-11-13] MEDS: FAMOTIDINE 20 MG TAB PO (09:28)
[2018-11-13] MEDS: DAKINS 0.0125%(1/40) 473 ML SOLUTION TP (09:29)
[2018-11-13] MEDS: HYDROCHLOROTHIAZIDE 25 MG TAB PO (09:29)
[2018-11-13] MEDS: AZITHROMYCIN 500MG/NS (PMX) 250 ML IVPB (12:12)
[2018-11-13] MEDS: VANCOMYCIN HCL 1.25 GM in SOD CHLORIDE 0.9% 250 ML IVPB (13:57)
[2018-11-13] MEDS: FUROSEMIDE 20 MG INJ IV (14:50)
[2018-11-13] MEDS: MONTELUKAST 10 MG TAB PO (20:25)
[2018-11-13] MEDS: INSULIN GLARGINE [LANTus] (100 UNITS/ML) SYG SC (20:26)
[2018-11-13] MEDS: ATORVASTATIN 40 MG TAB PO (20:31)
[2018-11-13] MEDS: AMPICILLIN 1 GM/NS (PMX) 50 ML IVPB (21:20)
[2018-11-14] MEDS: HYDROCODONE/APAP (5/325) TAB PO (01:52)
[2018-11-14] MEDS: ACCU-CHEK XX (02:49)
[2018-11-14] MEDS: AMPICILLIN 1 GM/NS (PMX) 50 ML IVPB ×4 (04:38→22:01)
[2018-11-14] MEDS: HYDROCHLOROTHIAZIDE 25 MG TAB PO (04:41)
[2018-11-14] MEDS: LEVOTHYROXINE 150 MCG TAB PO (04:42)
[2018-11-14] MEDS: LEVOFLOXACIN 500 MG TAB PO (05:15)
[2018-11-14] MEDS: INSULIN ASPART [NOVOLOG] 3 ML PEN SC ×7 (08:05→20:47)
[2018-11-14] MEDS: BUDESONIDE (NEB) 0.5MG/2ML AMP HHN ×2 (09:00→20:37)
[2018-11-14] MEDS: DAKINS 0.0125%(1/40) 473 ML SOLUTION TP (09:00)
[2018-11-14] MEDS: ALBUTEROL/IPRATROPIUM (NEB) 3 ML AMP HHN ×3 (09:17→20:37)
[2018-11-14] MEDS: morphine 4 MG/ML VIAL IV ×2 (09:23→15:28)
[2018-11-14] MEDS: FAMOTIDINE 20 MG TAB PO (12:16)
[2018-11-14] MEDS: FERROUS SULFATE (EC) 325 MG TAB PO (12:16)
[2018-11-14] MEDS: ASPIRIN 81 MG TAB PO (12:17)
[2018-11-14] MEDS: HEPARIN 5,000 UNIT/1 ML VIAL SC ×2 (12:23→20:47)
[2018-11-14] MEDS: AMLODIPINE 2.5 MG TAB PO (15:02)
[2018-11-14] MEDS: predniSONE 20 MG TAB PO (15:02)
[2018-11-14] MEDS: INSULIN GLARGINE [LANTus] (100 UNITS/ML) SYG SC ×2 (20:00→21:46)
[2018-11-14] MEDS: MONTELUKAST 10 MG TAB PO (20:50)
[2018-11-14] MEDS: ATORVASTATIN 40 MG TAB PO (20:51)
[2018-11-15] MEDS: HYDROCODONE/APAP (5/325) TAB PO ×3 (02:00→20:36)
[2018-11-15] MEDS: ACCU-CHEK XX (02:01)
[2018-11-15 05:52] LABS: ADD MAN DIFF? NO
[2018-11-15 05:59] LABS: WHITE BLOOD COUNT 8.6 10^3/ul (4.8-10.8)
[2018-11-15 05:59] LABS: BASOPHILS % 0.1 % (0.0-2.0); HEMATOCRIT 32.2 % (37.0-47.0); HEMOGLOBIN 10.4 g/dl (12.0-16.0); LYMPHOCYTES % 11.5 % (15.0-51.0); MEAN CORPUSCULAR HEMOGLOBIN 28.9 pg (29.0-33.0); MEAN CORPUSCULAR HGB CONC 32.3 g/dl (32.0-37.0); MEAN CORPUSCULAR VOLUME 89.4 fl (82.0-101.0); MEAN PLATELET VOLUME 9.7 fl (7.4-10.4); MONOCYTE # 0.6 10^3/ul (0.3-0.9); NEUTROPHIL # 6.9 10^3/ul (1.6-7.5); NEUTROPHILS % 80.2 % (39.0-77.0); PLATELET COUNT 398 10^3/UL (140-415); RED CELL DISTRIBUTION WIDTH 13.1 % (11.5-14.5)
[2018-11-15] MEDS: AMPICILLIN 1 GM/NS (PMX) 50 ML IVPB ×3 (06:04→20:36)
[2018-11-15] MEDS: LEVOFLOXACIN 500 MG TAB PO (06:04)
[2018-11-15] MEDS: LEVOTHYROXINE 150 MCG TAB PO (06:05)
[2018-11-15] MEDS: HYDROCHLOROTHIAZIDE 25 MG TAB PO (06:05)
[2018-11-15 06:50] LABS: ANION GAP 8 (5-13); BLOOD UREA NITROGEN 32 mg/dl (7-20); CALCIUM 9.7 mg/dl (8.4-10.2); CARBON DIOXIDE 38 mmol/L (21-31); CHLORIDE 90 mmol/L (97-110); CREATININE 0.86 mg/dl (0.44-1.00); GLUCOSE 341 mg/dl (70-220); MAGNESIUM 1.9 mg/dl (1.7-2.5); PHOSPHORUS 4.2 mg/dl (2.5-4.9); POTASSIUM 3.7 mmol/L (3.5-5.1); SODIUM 136 mmol/L (135-144)
[2018-11-15] MEDS: ALBUTEROL/IPRATROPIUM (NEB) 3 ML AMP HHN ×3 (08:00→19:42)
[2018-11-15] MEDS: BUDESONIDE (NEB) 0.5MG/2ML AMP HHN ×2 (08:10→19:41)
[2018-11-15] MEDS: INSULIN ASPART [NOVOLOG] 3 ML PEN SC ×7 (08:39→20:41)
[2018-11-15] MEDS: HEPARIN 5,000 UNIT/1 ML VIAL SC ×2 (08:41→20:42)
[2018-11-15] MEDS: predniSONE 20 MG TAB PO (08:42)
[2018-11-15] MEDS: FERROUS SULFATE (EC) 325 MG TAB PO (08:42)
[2018-11-15] MEDS: FAMOTIDINE 20 MG TAB PO (08:42)
[2018-11-15] MEDS: ASPIRIN 81 MG TAB PO (08:42)
[2018-11-15] MEDS: AMLODIPINE 2.5 MG TAB PO (08:42)
[2018-11-15] MEDS: DAKINS 0.0125%(1/40) 473 ML SOLUTION TP (08:44)
[2018-11-15] MEDS: AMLODIPINE 5 MG TAB PO (13:02)
[2018-11-15] MEDS ORDERED: INSULIN ASPART [NOVOLOG] 3 ML PEN SC ×3 (17:35→21:00)
[2018-11-15] MEDS: SOD CHLORIDE 0.9% 500 ML IV (17:49)
[2018-11-15] MEDS: MONTELUKAST 10 MG TAB PO (20:37)
[2018-11-15] MEDS: ATORVASTATIN 40 MG TAB PO (20:37)
[2018-11-15] MEDS: INSULIN GLARGINE [LANTus] (100 UNITS/ML) SYG SC (20:41)
[2018-11-15] MEDS ORDERED: INSULIN GLARGINE [LANTus] (100 UNITS/ML) SYG SC ×2 (21:00)
[2018-11-16] MEDS: ACCU-CHEK XX ×2 (02:00→20:30)
[2018-11-16] MEDS: AMPICILLIN 1 GM/NS (PMX) 50 ML IVPB ×3 (05:31→20:30)
[2018-11-16] MEDS: LEVOTHYROXINE 150 MCG TAB PO (05:32)
[2018-11-16] MEDS: LEVOFLOXACIN 500 MG TAB PO (05:32)
[2018-11-16] MEDS: HYDROCHLOROTHIAZIDE 25 MG TAB PO (05:33)
[2018-11-16] MEDS: ALBUTEROL/IPRATROPIUM (NEB) 3 ML AMP HHN ×4 (08:00→19:51)
[2018-11-16 08:25] LABS: ADD MAN DIFF? NO
[2018-11-16] MEDS: INSULIN ASPART [NOVOLOG] 3 ML PEN SC ×7 (08:27→20:29)
[2018-11-16] MEDS: HEPARIN 5,000 UNIT/1 ML VIAL SC ×2 (08:28→20:28)
[2018-11-16] MEDS: NPH, HUMAN INSULIN ISOPHANE 3ML VIAL SC (08:29)
[2018-11-16 08:31] LABS: BASOPHILS % 0.1 % (0.0-2.0); EOSINOPHILS % 0.1 % (0.0-7.0); HEMATOCRIT 33.2 % (37.0-47.0); HEMOGLOBIN 10.5 g/dl (12.0-16.0); LYMPHOCYTES # 1.4 10^3/ul (0.8-2.9); LYMPHOCYTES % 18.6 % (15.0-51.0); MEAN CORPUSCULAR HEMOGLOBIN 28.2 pg (29.0-33.0); MEAN CORPUSCULAR HGB CONC 31.6 g/dl (32.0-37.0); MEAN CORPUSCULAR VOLUME 89.2 fl (82.0-101.0); MEAN PLATELET VOLUME 9.9 fl (7.4-10.4); MONOCYTE # 0.7 10^3/ul (0.3-0.9); MONOCYTES % 9.7 % (0.0-11.0); NEUTROPHIL # 5.2 10^3/ul (1.6-7.5); NEUTROPHILS % 70.6 % (39.0-77.0); PLATELET COUNT 357 10^3/UL (140-415); RED BLOOD COUNT 3.72 10^6/ul (4.20-5.40); RED CELL DISTRIBUTION WIDTH 13.3 % (11.5-14.5)
[2018-11-16 08:31] LABS: WHITE BLOOD COUNT 7.4 10^3/ul (4.8-10.8)
[2018-11-16] MEDS: predniSONE 20 MG TAB PO (08:31)
[2018-11-16] MEDS: FERROUS SULFATE (EC) 325 MG TAB PO (08:31)
[2018-11-16] MEDS: FAMOTIDINE 20 MG TAB PO (08:31)
[2018-11-16] MEDS: ASPIRIN 81 MG TAB PO (08:31)
[2018-11-16] MEDS: AMLODIPINE 2.5 MG TAB PO (08:33)
[2018-11-16] MEDS: DAKINS 0.0125%(1/40) 473 ML SOLUTION TP (08:34)
[2018-11-16 08:52] LABS: ANION GAP 7 (5-13); BLOOD UREA NITROGEN 36 mg/dl (7-20); CALCIUM 9.4 mg/dl (8.4-10.2); CARBON DIOXIDE 37 mmol/L (21-31); CHLORIDE 93 mmol/L (97-110); CREATININE 0.86 mg/dl (0.44-1.00); GLUCOSE 248 mg/dl (70-220); MAGNESIUM 1.9 mg/dl (1.7-2.5); POTASSIUM 3.7 mmol/L (3.5-5.1); SODIUM 137 mmol/L (135-144)
[2018-11-16] MEDS: BUDESONIDE (NEB) 0.5MG/2ML AMP HHN ×3 (08:58→19:51)
[2018-11-16 11:38] LABS: B-TYPE NATRIURETIC PEPTIDE 1210 PG/ML (0-450)
[2018-11-16] MEDS: HYDROCODONE/APAP (5/325) TAB PO ×2 (12:10→20:26)
[2018-11-16] MEDS: ATORVASTATIN 40 MG TAB PO (20:26)
[2018-11-16] MEDS: INSULIN GLARGINE [LANTus] (100 UNITS/ML) SYG SC (20:27)
[2018-11-16] MEDS: LOSARTAN 50 MG TAB PO (20:29)
[2018-11-16] MEDS: GUAIFENESIN/CODEINE 5ML CUP PO (21:39)
[2018-11-17] MEDS: LEVOFLOXACIN 500 MG TAB PO (06:09)
[2018-11-17] MEDS: LEVOTHYROXINE 150 MCG TAB PO (06:09)
[2018-11-17] MEDS: AMPICILLIN 1 GM/NS (PMX) 50 ML IVPB ×3 (06:09→21:58)
[2018-11-17] MEDS: INSULIN ASPART [NOVOLOG] 3 ML PEN SC ×7 (08:00→20:32)
[2018-11-17] MEDS: ASPIRIN 81 MG TAB PO (08:40)
[2018-11-17] MEDS: FERROUS SULFATE (EC) 325 MG TAB PO (08:40)
[2018-11-17] MEDS: HEPARIN 5,000 UNIT/1 ML VIAL SC ×2 (08:40→20:32)
[2018-11-17] MEDS: FAMOTIDINE 20 MG TAB PO (08:41)
[2018-11-17] MEDS: GUAIFENESIN/CODEINE 5ML CUP PO (08:42)
[2018-11-17] MEDS: AMLODIPINE 2.5 MG TAB PO (08:46)
[2018-11-17] MEDS: BUDESONIDE (NEB) 0.5MG/2ML AMP HHN ×2 (09:52→20:54)
[2018-11-17] MEDS: ALBUTEROL/IPRATROPIUM (NEB) 3 ML AMP HHN ×3 (09:52→20:54)
[2018-11-17] MEDS: ACETAMINOPHEN 650MG/20.3ML CUP PO (12:16)
[2018-11-17] MEDS: DAKINS 0.0125%(1/40) 473 ML SOLUTION TP (12:19)
[2018-11-17] MEDS: ATORVASTATIN 40 MG TAB PO (20:28)
[2018-11-17] MEDS: LOSARTAN 50 MG TAB PO (20:29)
[2018-11-17] MEDS: INSULIN GLARGINE [LANTus] (100 UNITS/ML) SYG SC (20:31)
[2018-11-17] MEDS: HYDROCODONE/APAP (5/325) TAB PO (22:40)
[2018-11-18] MEDS: ACCU-CHEK XX (01:35)
[2018-11-18] MEDS: traZODone 50 MG TAB PO (01:46)
[2018-11-18] MEDS: LEVOTHYROXINE 150 MCG TAB PO (06:17)
[2018-11-18] MEDS: AMPICILLIN 1 GM/NS (PMX) 50 ML IVPB ×3 (06:17→22:35)
[2018-11-18] MEDS: LEVOFLOXACIN 500 MG TAB PO (06:17)
[2018-11-18] MEDS: FAMOTIDINE 20 MG TAB PO (08:09)
[2018-11-18] MEDS: ASPIRIN 81 MG TAB PO (08:10)
[2018-11-18] MEDS: FERROUS SULFATE (EC) 325 MG TAB PO (08:10)
[2018-11-18] MEDS: AMLODIPINE 2.5 MG TAB PO (08:11)
[2018-11-18] MEDS: DAKINS 0.0125%(1/40) 473 ML SOLUTION TP (08:11)
[2018-11-18] MEDS: INSULIN ASPART [NOVOLOG] 3 ML PEN SC ×7 (08:14→20:47)
[2018-11-18] MEDS: HEPARIN 5,000 UNIT/1 ML VIAL SC ×2 (08:16→20:46)
[2018-11-18] MEDS: ALBUTEROL/IPRATROPIUM (NEB) 3 ML AMP HHN ×3 (08:35→20:00)
[2018-11-18] MEDS: BUDESONIDE (NEB) 0.5MG/2ML AMP HHN ×2 (09:21→20:00)
[2018-11-18] MEDS: HYDROCODONE/APAP (5/325) TAB PO (14:08)
[2018-11-18] MEDS: LOSARTAN 50 MG TAB PO (20:43)
[2018-11-18] MEDS: ATORVASTATIN 40 MG TAB PO (20:43)
[2018-11-18] MEDS: INSULIN GLARGINE [LANTus] (100 UNITS/ML) SYG SC (20:47)
[2018-11-19] MEDS: ACCU-CHEK XX (02:00)
[2018-11-19 06:02] LABS: ADD MAN DIFF? NO
[2018-11-19 06:09] LABS: WHITE BLOOD COUNT 6.1 10^3/ul (4.8-10.8)
[2018-11-19 06:09] LABS: BASOPHIL # 0.1 10^3/ul (0.0-0.1); BASOPHILS % 0.8 % (0.0-2.0); EOSINOPHILS # 0.2 10^3/ul (0.0-0.5); EOSINOPHILS % 2.8 % (0.0-7.0); HEMATOCRIT 34.8 % (37.0-47.0); HEMOGLOBIN 11.1 g/dl (12.0-16.0); LYMPHOCYTES # 1.7 10^3/ul (0.8-2.9); LYMPHOCYTES % 27.8 % (15.0-51.0); MEAN CORPUSCULAR HEMOGLOBIN 29.2 pg (29.0-33.0); MEAN CORPUSCULAR HGB CONC 31.9 g/dl (32.0-37.0); MEAN CORPUSCULAR VOLUME 91.6 fl (82.0-101.0); MEAN PLATELET VOLUME 10.5 fl (7.4-10.4); MONOCYTE # 0.7 10^3/ul (0.3-0.9); MONOCYTES % 11.2 % (0.0-11.0); NEUTROPHIL # 3.3 10^3/ul (1.6-7.5); NEUTROPHILS % 53.8 % (39.0-77.0); PLATELET COUNT 256 10^3/UL (140-415); RED CELL DISTRIBUTION WIDTH 13.8 % (11.5-14.5)
[2018-11-19] MEDS: LEVOFLOXACIN 500 MG TAB PO (06:20)
[2018-11-19 06:21] LABS: ANION GAP 6 (5-13); BLOOD UREA NITROGEN 45 mg/dl (7-20); CALCIUM 8.7 mg/dl (8.4-10.2); CARBON DIOXIDE 31 mmol/L (21-31); CHLORIDE 101 mmol/L (97-110); CREATININE 1.26 mg/dl (0.44-1.00); GLUCOSE 109 mg/dl (70-220); POTASSIUM 3.7 mmol/L (3.5-5.1); SODIUM 138 mmol/L (135-144)
[2018-11-19] MEDS: AMPICILLIN 1 GM/NS (PMX) 50 ML IVPB ×3 (06:21→21:36)
[2018-11-19 06:33] LABS: INR 0.86; PROTIME 11.8 Sec (11.9-14.9); PT RATIO 0.9
[2018-11-19 06:34] LABS: PARTIAL THROMBOPLASTIN TIME 25.2 Sec (23.0-35.0)
[2018-11-19] MEDS: LEVOTHYROXINE 150 MCG TAB PO (08:00)
[2018-11-19] MEDS: INSULIN ASPART [NOVOLOG] 3 ML PEN SC ×7 (08:02→20:46)
[2018-11-19] MEDS: ALBUTEROL/IPRATROPIUM (NEB) 3 ML AMP HHN ×3 (08:24→20:30)
[2018-11-19] MEDS: BUDESONIDE (NEB) 0.5MG/2ML AMP HHN ×2 (08:35→20:30)
[2018-11-19] MEDS: DAKINS 0.0125%(1/40) 473 ML SOLUTION TP (08:41)
[2018-11-19] MEDS: FAMOTIDINE 20 MG TAB PO (08:42)
[2018-11-19] MEDS: FERROUS SULFATE (EC) 325 MG TAB PO (08:42)
[2018-11-19] MEDS: ASPIRIN 81 MG TAB PO (08:43)
[2018-11-19] MEDS: AMLODIPINE 2.5 MG TAB PO (08:43)
[2018-11-19] MEDS: HEPARIN 5,000 UNIT/1 ML VIAL SC ×2 (08:44→20:46)
[2018-11-19] MEDS: GUAIFENESIN/CODEINE 5ML CUP PO (09:52)
[2018-11-19] MEDS: ATORVASTATIN 40 MG TAB PO (20:43)
[2018-11-19] MEDS: LOSARTAN 50 MG TAB PO (20:44)
[2018-11-19] MEDS: INSULIN GLARGINE [LANTus] (100 UNITS/ML) SYG SC (20:46)
[2018-11-19] MEDS: HYDROCODONE/APAP (5/325) TAB PO (20:47)
[2018-11-20] MEDS: DEXTROSE 5%-0.45% NACL 1,000 ML IV (00:40)
[2018-11-20] MEDS: INSULIN ASPART [NOVOLOG] 3 ML PEN SC ×9 (00:48→21:17)
[2018-11-20] MEDS: ACCU-CHEK XX (02:00)
[2018-11-20] MEDS: LEVOFLOXACIN 250 MG TAB PO (05:22)
[2018-11-20] MEDS: AMPICILLIN 1 GM/NS (PMX) 50 ML IVPB ×3 (05:23→21:52)
[2018-11-20] MEDS: LEVOTHYROXINE 150 MCG TAB PO (07:00)
[2018-11-20] MEDS: THROMBIN 5000 UNIT VIAL (07:53)
[2018-11-20] MEDS: HEPARIN 1000 UNITS/ML 10 ML INJ (07:53)
[2018-11-20] MEDS: GELATIN SIZE 100 SPONGE (07:53)
[2018-11-20] MEDS: ALBUTEROL/IPRATROPIUM (NEB) 3 ML AMP HHN ×3 (08:00→20:13)
[2018-11-20] MEDS: BUDESONIDE (NEB) 0.5MG/2ML AMP HHN ×2 (08:12→20:13)
[2018-11-20] MEDS ORDERED: FENTAnyl 50 MCG/ML VIAL ×3 (08:13→10:30)
[2018-11-20] MEDS ORDERED: MIDAZOLAM 1 MG/ML 2 ML INJ (08:13)
[2018-11-20] MEDS: AMLODIPINE 2.5 MG TAB PO (08:29)
[2018-11-20] MEDS: FERROUS SULFATE (EC) 325 MG TAB PO (08:29)
[2018-11-20] MEDS: HEPARIN 5,000 UNIT/1 ML VIAL SC (08:29)
[2018-11-20] MEDS: FAMOTIDINE 20 MG TAB PO (08:29)
[2018-11-20] MEDS: ASPIRIN 81 MG TAB PO (08:29)
[2018-11-20] MEDS: DAKINS 0.0125%(1/40) 473 ML SOLUTION TP (08:30)
[2018-11-20] MEDS ORDERED: HEPARIN 1000 UNITS/ML 10 ML INJ (10:29)
[2018-11-20] MEDS ORDERED: LIDOCAINE 2% (SDV) 5 ML INJ (11:53)
[2018-11-20] MEDS ORDERED: ETOMIDATE 20 MG INJ (11:53)
[2018-11-20] MEDS ORDERED: ROCURONIUM 50 MG INJ (11:54)
[2018-11-20] MEDS ORDERED: CEFAZOLIN 1 GM INJ (11:55)
[2018-11-20] MEDS ORDERED: ONDANSETRON 4 MG INJ (11:55)
[2018-11-20] MEDS ORDERED: DIPHENHYDRAMINE 50 MG INJ IV (12:30)
[2018-11-20] MEDS ORDERED: MEPERIDINE 25 MG INJ IV (12:30)
[2018-11-20] MEDS ORDERED: hydrALAzine 20 MG INJ IV (12:30)
[2018-11-20] MEDS ORDERED: LABETALOL HCL 20MG INJ IV (12:30)
[2018-11-20] MEDS ORDERED: METOCLOPRAMIDE 10 MG INJ IV (12:30)
[2018-11-20] MEDS ORDERED: HYDROmorphONE 1 MG/5 ML IV SYRINGE IV ×2 (12:30)
[2018-11-20] MEDS: hydrALAzine 20 MG INJ IV (12:40)
[2018-11-20] MEDS: ONDANSETRON 4 MG INJ IV (13:35)
[2018-11-20] MEDS: FENTAnyl 50 MCG/ML VIAL IV (14:13)
[2018-11-20] MEDS ORDERED: HEPARIN 25000 UNITS/250 ML 250 ML IV ×2 (15:30)
[2018-11-20] MEDS ORDERED: HEPARIN 1000 UNITS/ML 10 ML INJ IV ×2 (15:30)
[2018-11-20] MEDS: LACTATED RINGER'S 1,000 ML IV (16:26)
[2018-11-20] MEDS: morphine 4 MG/ML VIAL IV ×2 (16:26→20:25)
[2018-11-20] MEDS ORDERED: niCARdipine 50 MG in SOD CHLORIDE 0.9% 480 ML IV (16:30)
[2018-11-20] MEDS: HEPARIN 25000 UNITS/250 ML 250 ML IV (17:07)
[2018-11-20] MEDS: LOSARTAN 50 MG TAB PO (21:14)
[2018-11-20] MEDS: ATORVASTATIN 40 MG TAB PO (21:14)
[2018-11-20] MEDS: INSULIN GLARGINE [LANTus] (100 UNITS/ML) SYG SC (21:19)
[2018-11-21] MEDS: morphine 4 MG/ML VIAL IV ×2 (00:38→05:48)
[2018-11-21] MEDS: LACTATED RINGER'S 1,000 ML IV ×3 (01:34→15:31)
[2018-11-21] MEDS: ACCU-CHEK XX (01:44)
[2018-11-21] MEDS ORDERED: ACCU-CHEK XX (02:00)
[2018-11-21] MEDS: LEVOFLOXACIN 250 MG TAB PO (05:45)
[2018-11-21] MEDS: AMPICILLIN 1 GM/NS (PMX) 50 ML IVPB ×3 (05:45→21:31)
[2018-11-21] MEDS: LEVOTHYROXINE 150 MCG TAB PO (05:45)
[2018-11-21] MEDS: INSULIN ASPART [NOVOLOG] 3 ML PEN SC ×7 (07:35→20:59)
[2018-11-21] MEDS: HYDROmorphONE 1 MG/ML SYG IV (07:54)
[2018-11-21] MEDS ORDERED: morphine 10 MG INJ IV (08:00)
[2018-11-21] MEDS ORDERED: morphine 4 MG/ML VIAL IV ×2 (08:00)
[2018-11-21] MEDS: HEPARIN 1000 UNITS/ML 10 ML INJ IV (08:32)
[2018-11-21] MEDS: ALBUTEROL/IPRATROPIUM (NEB) 3 ML AMP HHN ×3 (09:31→20:07)
[2018-11-21] MEDS: BUDESONIDE (NEB) 0.5MG/2ML AMP HHN ×2 (09:31→20:00)
[2018-11-21 09:55] LABS: ADD MAN DIFF? NO
[2018-11-21 09:58] LABS: ABNORMAL IP MESSAGE 1; EOSINOPHILS # 0.1 10^3/ul (0.0-0.5); EOSINOPHILS % 1.7 % (0.0-7.0); HEMATOCRIT 17.9 % (37.0-47.0); LYMPHOCYTES # 1.5 10^3/ul (0.8-2.9); LYMPHOCYTES % 20.4 % (15.0-51.0); MEAN CORPUSCULAR HEMOGLOBIN 29.2 pg (29.0-33.0); MEAN CORPUSCULAR HGB CONC 31.3 g/dl (32.0-37.0); MEAN CORPUSCULAR VOLUME 93.2 fl (82.0-101.0); MEAN PLATELET VOLUME 10.3 fl (7.4-10.4); MONOCYTE # 0.9 10^3/ul (0.3-0.9); MONOCYTES % 12.7 % (0.0-11.0); NEUTROPHIL # 4.6 10^3/ul (1.6-7.5); NEUTROPHILS % 64.2 % (39.0-77.0); PLATELET COUNT 143 10^3/UL (140-415); RED BLOOD COUNT 1.92 10^6/ul (4.20-5.40); RED CELL DISTRIBUTION WIDTH 14.4 % (11.5-14.5)
[2018-11-21 09:58] LABS: WHITE BLOOD COUNT 7.2 10^3/ul (4.8-10.8)
[2018-11-21 09:59] LABS: POSITIVE DIFF @See below
[2018-11-21 10:07] LABS: HEMOGLOBIN 5.6 g/dl (12.0-16.0)
[2018-11-21 10:16] LABS: ANION GAP 1 (5-13); BLOOD UREA NITROGEN 17 mg/dl (7-20); CALCIUM 7.4 mg/dl (8.4-10.2); CARBON DIOXIDE 28 mmol/L (21-31); CHLORIDE 105 mmol/L (97-110); CREATININE 0.92 mg/dl (0.44-1.00); GLUCOSE 175 mg/dl (70-220); POTASSIUM 4.2 mmol/L (3.5-5.1); SODIUM 134 mmol/L (135-144)
[2018-11-21 10:26] LABS: WHITE BLOOD COUNT 7.6 10^3/ul (4.8-10.8)
[2018-11-21 10:26] LABS: ABNORMAL IP MESSAGE 1; HEMATOCRIT 17.8 % (37.0-47.0); MEAN CORPUSCULAR HEMOGLOBIN 29.2 pg (29.0-33.0); MEAN CORPUSCULAR HGB CONC 31.5 g/dl (32.0-37.0); MEAN CORPUSCULAR VOLUME 92.7 fl (82.0-101.0); MEAN PLATELET VOLUME 10.8 fl (7.4-10.4); PLATELET COUNT 165 10^3/UL (140-415); RED BLOOD COUNT 1.92 10^6/ul (4.20-5.40); RED CELL DISTRIBUTION WIDTH 14.3 % (11.5-14.5)
[2018-11-21 10:30] LABS: ADD MAN DIFF? YES; HEMOGLOBIN 5.6 g/dl (12.0-16.0); POSITIVE DIFF @See below
[2018-11-21 10:31] LABS: PATH REVIEW? YES
[2018-11-21] MEDS: AMLODIPINE 2.5 MG TAB PO (10:56)
[2018-11-21] MEDS: FAMOTIDINE 20 MG TAB PO (10:56)
[2018-11-21] MEDS: FERROUS SULFATE (EC) 325 MG TAB PO (10:57)
[2018-11-21 12:17] LABS: ANISOCYTOSIS 1+ (0-0); EOSINOPHILS % (M) 2 % (0-7); LYMPHOCYTES #M 1.4 10^3/ul (0.8-2.9); LYMPHOCYTES % (M) 19 % (15-51); MONOCYTE #M 0.6 10^3/ul (0.3-0.9); MONOCYTES % (M) 8 % (0-11); PLATELET ESTIMATE NORMAL; SEGMENTED NEUTROPHILS (M) % 71 % (39-77); SMUDGE%M 15 % (0-0)
[2018-11-21] MEDS: HYDROCODONE/APAP (5/325) TAB PO (17:09)
[2018-11-21 18:14] LABS: HEMATOCRIT 24.3 % (37.0-47.0); HEMOGLOBIN 8.1 g/dl (12.0-16.0)
[2018-11-21] MEDS: INSULIN GLARGINE [LANTus] (100 UNITS/ML) SYG SC (21:00)
[2018-11-21] MEDS: ATORVASTATIN 40 MG TAB PO (21:28)
[2018-11-21] MEDS: LOSARTAN 50 MG TAB PO (21:29)
[2018-11-21] MEDS: morphine 2 MG INJ IV (21:31)
[2018-11-22] MEDS: LACTATED RINGER'S 1,000 ML IV (01:25)
[2018-11-22] MEDS: ACCU-CHEK XX (01:25)
[2018-11-22] MEDS: LEVOFLOXACIN 250 MG TAB PO (05:31)
[2018-11-22] MEDS: AMPICILLIN 1 GM/NS (PMX) 50 ML IVPB ×3 (05:32→22:11)
[2018-11-22] MEDS: LEVOTHYROXINE 150 MCG TAB PO (06:00)
[2018-11-22 06:10] LABS: ADD MAN DIFF? NO
[2018-11-22 06:28] LABS: WHITE BLOOD COUNT 8.5 10^3/ul (4.8-10.8)
[2018-11-22 06:28] LABS: BASOPHILS % 0.2 % (0.0-2.0); EOSINOPHILS # 0.1 10^3/ul (0.0-0.5); EOSINOPHILS % 1.2 % (0.0-7.0); HEMATOCRIT 21.9 % (37.0-47.0); HEMOGLOBIN 7.2 g/dl (12.0-16.0); LYMPHOCYTES # 1.2 10^3/ul (0.8-2.9); LYMPHOCYTES % 14.3 % (15.0-51.0); MEAN CORPUSCULAR HEMOGLOBIN 29.3 pg (29.0-33.0); MEAN CORPUSCULAR HGB CONC 32.9 g/dl (32.0-37.0); MEAN PLATELET VOLUME 11.5 fl (7.4-10.4); MONOCYTE # 1.2 10^3/ul (0.3-0.9); MONOCYTES % 13.9 % (0.0-11.0); NEUTROPHIL # 5.9 10^3/ul (1.6-7.5); NEUTROPHILS % 69.5 % (39.0-77.0); PLATELET COUNT 125 10^3/UL (140-415); RED BLOOD COUNT 2.46 10^6/ul (4.20-5.40); RED CELL DISTRIBUTION WIDTH 15.5 % (11.5-14.5)
[2018-11-22 06:59] LABS: ALBUMIN 2.1 g/dl (3.3-4.9); ANION GAP 2 (5-13); BLOOD UREA NITROGEN 16 mg/dl (7-20); CALCIUM 7.3 mg/dl (8.4-10.2); CARBON DIOXIDE 27 mmol/L (21-31); CHLORIDE 102 mmol/L (97-110); CREATININE 0.85 mg/dl (0.44-1.00); GLUCOSE 131 mg/dl (70-220); MAGNESIUM 1.7 mg/dl (1.7-2.5); PHOSPHORUS 3.1 mg/dl (2.5-4.9); SODIUM 131 mmol/L (135-144)
[2018-11-22] MEDS: morphine 2 MG INJ IV ×2 (07:39→12:39)
[2018-11-22] MEDS: INSULIN ASPART [NOVOLOG] 3 ML PEN SC ×9 (07:50→20:12)
[2018-11-22] MEDS: ALBUTEROL/IPRATROPIUM (NEB) 3 ML AMP HHN ×3 (08:00→20:33)
[2018-11-22] MEDS: BUDESONIDE (NEB) 0.5MG/2ML AMP HHN ×2 (08:12→20:00)
[2018-11-22] MEDS: FAMOTIDINE 20 MG TAB PO (09:08)
[2018-11-22] MEDS: SOD CHLORIDE 0.9% 1,000 ML IV ×2 (09:08→22:20)
[2018-11-22] MEDS: AMLODIPINE 2.5 MG TAB PO (09:08)
[2018-11-22] MEDS: FERROUS SULFATE (EC) 325 MG TAB PO (09:08)
[2018-11-22] MEDS ORDERED: FUROSEMIDE 40 MG INJ IV (11:00)
[2018-11-22] MEDS: ASPIRIN 325 MG TAB PO (11:47)
[2018-11-22] MEDS: FUROSEMIDE 20 MG INJ IV (11:47)
[2018-11-22] MEDS: HYDROCODONE/APAP (5/325) TAB PO (15:42)
[2018-11-22] MEDS: ATORVASTATIN 40 MG TAB PO (20:11)
[2018-11-22] MEDS: LOSARTAN 50 MG TAB PO (20:11)
[2018-11-22] MEDS: INSULIN GLARGINE [LANTus] (100 UNITS/ML) SYG SC (20:18)
[2018-11-23] MEDS: morphine 2 MG INJ IV (00:20)
[2018-11-23] MEDS: ACCU-CHEK XX (02:25)
[2018-11-23] MEDS: MAGNESIUM SULFATE 2 GM/50 ML 50 ML IVPB (02:51)
[2018-11-23] MEDS: SOD CHLORIDE 0.9% 1,000 ML IV (02:52)
[2018-11-23] MEDS: LEVOTHYROXINE 150 MCG TAB PO (06:11)
[2018-11-23] MEDS: LEVOFLOXACIN 250 MG TAB PO (06:11)
[2018-11-23] MEDS: AMPICILLIN 1 GM/NS (PMX) 50 ML IVPB ×3 (06:12→22:04)
[2018-11-23 06:53] LABS: ADD MAN DIFF? NO
[2018-11-23 06:55] LABS: BASOPHILS % 0.3 % (0.0-2.0); EOSINOPHILS # 0.1 10^3/ul (0.0-0.5); EOSINOPHILS % 0.8 % (0.0-7.0); HEMATOCRIT 24.1 % (37.0-47.0); HEMOGLOBIN 7.9 g/dl (12.0-16.0); LYMPHOCYTES % 13.4 % (15.0-51.0); MEAN CORPUSCULAR HEMOGLOBIN 29.6 pg (29.0-33.0); MEAN CORPUSCULAR HGB CONC 32.8 g/dl (32.0-37.0); MEAN CORPUSCULAR VOLUME 90.3 fl (82.0-101.0); MEAN PLATELET VOLUME 10.9 fl (7.4-10.4); MONOCYTES % 12.6 % (0.0-11.0); NEUTROPHIL # 5.4 10^3/ul (1.6-7.5); NEUTROPHILS % 72.1 % (39.0-77.0); PLATELET COUNT 124 10^3/UL (140-415); RED BLOOD COUNT 2.67 10^6/ul (4.20-5.40); RED CELL DISTRIBUTION WIDTH 14.7 % (11.5-14.5)
[2018-11-23 06:55] LABS: WHITE BLOOD COUNT 7.5 10^3/ul (4.8-10.8)
[2018-11-23 07:17] LABS: ALBUMIN 2.3 g/dl (3.3-4.9); ANION GAP 4 (5-13); BLOOD UREA NITROGEN 16 mg/dl (7-20); CALCIUM 7.6 mg/dl (8.4-10.2); CARBON DIOXIDE 26 mmol/L (21-31); CHLORIDE 103 mmol/L (97-110); CREATININE 0.86 mg/dl (0.44-1.00); GLUCOSE 161 mg/dl (70-220); MAGNESIUM 2.4 mg/dl (1.7-2.5); PHOSPHORUS 3.5 mg/dl (2.5-4.9); POTASSIUM 3.8 mmol/L (3.5-5.1); SODIUM 133 mmol/L (135-144)
[2018-11-23] MEDS: ALBUTEROL/IPRATROPIUM (NEB) 3 ML AMP HHN ×3 (08:00→20:00)
[2018-11-23] MEDS: HYDROCODONE/APAP (5/325) TAB PO ×2 (08:15→14:19)
[2018-11-23] MEDS: INSULIN ASPART [NOVOLOG] 3 ML PEN SC ×7 (08:27→21:00)
[2018-11-23] MEDS: ASPIRIN 325 MG TAB PO (08:42)
[2018-11-23] MEDS: AMLODIPINE 2.5 MG TAB PO (08:43)
[2018-11-23] MEDS: FERROUS SULFATE (EC) 325 MG TAB PO (08:43)
[2018-11-23] MEDS: FAMOTIDINE 20 MG TAB PO (08:43)
[2018-11-23] MEDS: BUDESONIDE (NEB) 0.5MG/2ML AMP HHN ×2 (09:00→20:00)
[2018-11-23] MEDS: POLYETHYLENE GLYCOL 17 GM PACKET PO (09:01)
[2018-11-23] MEDS: SENNA/DOCUSATE NA (8.6MG/50MG) TAB PO (09:01)
[2018-11-23 10:21] LABS: IMMEDIATE SPIN CROSSMATCH 1 4
[2018-11-23] MEDS: ATORVASTATIN 40 MG TAB PO (21:13)
[2018-11-23] MEDS: LOSARTAN 50 MG TAB PO (21:17)
[2018-11-23] MEDS: INSULIN GLARGINE [LANTus] (100 UNITS/ML) SYG SC (21:34)
[2018-11-24] MEDS: ACCU-CHEK XX (02:19)
[2018-11-24] MEDS: AMPICILLIN 1 GM/NS (PMX) 50 ML IVPB ×3 (06:07→22:36)
[2018-11-24] MEDS: LEVOFLOXACIN 250 MG TAB PO (06:07)
[2018-11-24] MEDS: LEVOTHYROXINE 150 MCG TAB PO (06:07)
[2018-11-24 06:32] LABS: ADD MAN DIFF? NO
[2018-11-24 06:37] LABS: BASOPHILS % 0.2 % (0.0-2.0); EOSINOPHILS # 0.2 10^3/ul (0.0-0.5); EOSINOPHILS % 2.6 % (0.0-7.0); HEMATOCRIT 27.3 % (37.0-47.0); HEMOGLOBIN 8.9 g/dl (12.0-16.0); LYMPHOCYTES # 1.3 10^3/ul (0.8-2.9); LYMPHOCYTES % 15.9 % (15.0-51.0); MEAN CORPUSCULAR HGB CONC 32.6 g/dl (32.0-37.0); MEAN CORPUSCULAR VOLUME 88.9 fl (82.0-101.0); MEAN PLATELET VOLUME 10.6 fl (7.4-10.4); MONOCYTE # 0.9 10^3/ul (0.3-0.9); MONOCYTES % 10.9 % (0.0-11.0); NEUTROPHIL # 5.6 10^3/ul (1.6-7.5); NEUTROPHILS % 69.8 % (39.0-77.0); PLATELET COUNT 150 10^3/UL (140-415); RED BLOOD COUNT 3.07 10^6/ul (4.20-5.40); RED CELL DISTRIBUTION WIDTH 15.8 % (11.5-14.5)
[2018-11-24 07:33] LABS: ALBUMIN 2.4 g/dl (3.3-4.9); ANION GAP 3 (5-13); BLOOD UREA NITROGEN 17 mg/dl (7-20); CALCIUM 7.8 mg/dl (8.4-10.2); CARBON DIOXIDE 28 mmol/L (21-31); CHLORIDE 102 mmol/L (97-110); CREATININE 0.93 mg/dl (0.44-1.00); GLUCOSE 98 mg/dl (70-220); MAGNESIUM 2.2 mg/dl (1.7-2.5); PHOSPHORUS 3.2 mg/dl (2.5-4.9); SODIUM 133 mmol/L (135-144)
[2018-11-24] MEDS: INSULIN ASPART [NOVOLOG] 3 ML PEN SC ×7 (07:55→21:00)
[2018-11-24] MEDS: ALBUTEROL/IPRATROPIUM (NEB) 3 ML AMP HHN ×3 (08:00→20:00)
[2018-11-24] MEDS: BUDESONIDE (NEB) 0.5MG/2ML AMP HHN ×2 (08:31→20:00)
[2018-11-24] MEDS: DEXTROSE 5%-0.45% NACL 1,000 ML IV (09:36)
[2018-11-24] MEDS: AMLODIPINE 2.5 MG TAB PO (09:37)
[2018-11-24] MEDS: ASPIRIN 325 MG TAB PO (09:37)
[2018-11-24] MEDS: FERROUS SULFATE (EC) 325 MG TAB PO (09:37)
[2018-11-24] MEDS: FAMOTIDINE 20 MG TAB PO (09:38)
[2018-11-24] MEDS ORDERED: PROPOFOL 20 ML (15:23)
[2018-11-24] MEDS ORDERED: FENTAnyl 50 MCG/ML VIAL (15:23)
[2018-11-24] MEDS ORDERED: ONDANSETRON 4 MG INJ IV (15:30)
[2018-11-24] MEDS ORDERED: FENTAnyl 50 MCG/ML VIAL IV (15:30)
[2018-11-24] MEDS: LIDOCAINE 1% (MPF) 30 ML INJ (17:02)
[2018-11-24] MEDS: BUPIVACAINE 0.5% (SDV) 30 ML INJ (17:02)
[2018-11-24] MEDS: morphine 2 MG INJ IV (18:07)
[2018-11-24] MEDS: INSULIN GLARGINE [LANTus] (100 UNITS/ML) SYG SC (20:55)
[2018-11-24] MEDS: LOSARTAN 50 MG TAB PO (21:05)
[2018-11-24] MEDS: ATORVASTATIN 40 MG TAB PO (21:05)
[2018-11-24] MEDS: HYDROCODONE/APAP (5/325) TAB PO (21:11)
[2018-11-25] MEDS: morphine 2 MG INJ IV ×5 (00:50→12:42)
[2018-11-25] MEDS: ACCU-CHEK XX (01:52)
[2018-11-25] MEDS: LEVOTHYROXINE 150 MCG TAB PO (06:05)
[2018-11-25] MEDS: AMPICILLIN 1 GM/NS (PMX) 50 ML IVPB ×3 (06:05→21:24)
[2018-11-25] MEDS: LEVOFLOXACIN 250 MG TAB PO (06:05)
[2018-11-25 06:22] LABS: ADD MAN DIFF? NO
[2018-11-25 06:29] LABS: BASOPHILS % 0.2 % (0.0-2.0); EOSINOPHILS # 0.2 10^3/ul (0.0-0.5); EOSINOPHILS % 1.9 % (0.0-7.0); HEMOGLOBIN 9.4 g/dl (12.0-16.0); LYMPHOCYTES # 1.2 10^3/ul (0.8-2.9); LYMPHOCYTES % 13.9 % (15.0-51.0); MEAN CORPUSCULAR HEMOGLOBIN 29.2 pg (29.0-33.0); MEAN CORPUSCULAR HGB CONC 32.4 g/dl (32.0-37.0); MEAN CORPUSCULAR VOLUME 90.1 fl (82.0-101.0); MEAN PLATELET VOLUME 9.9 fl (7.4-10.4); MONOCYTES % 11.7 % (0.0-11.0); NEUTROPHIL # 6.3 10^3/ul (1.6-7.5); NEUTROPHILS % 71.6 % (39.0-77.0); PLATELET COUNT 189 10^3/UL (140-415); RED BLOOD COUNT 3.22 10^6/ul (4.20-5.40); RED CELL DISTRIBUTION WIDTH 15.3 % (11.5-14.5)
[2018-11-25 06:29] LABS: WHITE BLOOD COUNT 8.8 10^3/ul (4.8-10.8)
[2018-11-25 06:52] LABS: ANION GAP 6 (5-13); BLOOD UREA NITROGEN 16 mg/dl (7-20); CALCIUM 8.2 mg/dl (8.4-10.2); CARBON DIOXIDE 28 mmol/L (21-31); CHLORIDE 102 mmol/L (97-110); CREATININE 0.87 mg/dl (0.44-1.00); GLUCOSE 82 mg/dl (70-220); MAGNESIUM 2.2 mg/dl (1.7-2.5); PHOSPHORUS 3.8 mg/dl (2.5-4.9); POTASSIUM 4.3 mmol/L (3.5-5.1); SODIUM 136 mmol/L (135-144)
[2018-11-25] MEDS: INSULIN ASPART [NOVOLOG] 3 ML PEN SC ×7 (07:55→21:00)
[2018-11-25] MEDS: FAMOTIDINE 20 MG TAB PO (08:34)
[2018-11-25] MEDS: FERROUS SULFATE (EC) 325 MG TAB PO (08:34)
[2018-11-25] MEDS: ASPIRIN 325 MG TAB PO (08:38)
[2018-11-25] MEDS: ACETAMINOPHEN 650MG/20.3ML CUP PO (08:42)
[2018-11-25] MEDS: BUDESONIDE (NEB) 0.5MG/2ML AMP HHN ×2 (08:55→19:30)
[2018-11-25] MEDS: ALBUTEROL/IPRATROPIUM (NEB) 3 ML AMP HHN ×3 (08:55→19:30)
[2018-11-25] MEDS: AMLODIPINE 10 MG TAB PO (09:53)
[2018-11-25] MEDS: ATORVASTATIN 40 MG TAB PO (21:17)
[2018-11-25] MEDS: LOSARTAN 50 MG TAB PO (21:17)
[2018-11-25] MEDS: INSULIN GLARGINE [LANTus] (100 UNITS/ML) SYG SC (22:14)
[2018-11-26] MEDS: ACETAMINOPHEN 650MG/20.3ML CUP PO (00:16)
[2018-11-26] MEDS: ALBUTEROL/IPRATROPIUM (NEB) 3 ML AMP HHN ×4 (00:33→12:56)
[2018-11-26] MEDS: ACCU-CHEK XX (02:00)
[2018-11-26] MEDS: LORAZEPAM 2 MG INJ IV (02:21)
[2018-11-26 02:42] LABS: AADO2 Arterial 164.2 mmHg (7.0-24.0); Allen Test ACCEPTAB; Arterial Base Excess 4.2 mmol/L (-3.0-3); Arterial Blood Gas Oxygen Sat 92.8 mmHG (95.0-100.0); Arterial COHb 0.5 % (0.0-3.0); Arterial Fraction of Oxyhgb 92.2 % (93.0-99.0); Arterial HCO3 28.9 mmol/L (22.0-26.0); Arterial MetHb 0.2 % (0.0-1.5); Arterial pCO2 44.6 mmhg (35-45); MODE NASAL CANNULA; Site Left Radial
[2018-11-26] MEDS: AMPICILLIN 1 GM/NS (PMX) 50 ML IVPB (05:33)
[2018-11-26] MEDS: LEVOFLOXACIN 250 MG TAB PO (06:01)
[2018-11-26] MEDS: FUROSEMIDE 40 MG INJ IV ×2 (06:01→16:57)
[2018-11-26] MEDS: LEVOTHYROXINE 150 MCG TAB PO (06:01)
[2018-11-26] MEDS: BISACODYL 10 MG SUPP PR (06:01)
[2018-11-26 06:14] LABS: ADD MAN DIFF? NO
[2018-11-26 06:16] LABS: WHITE BLOOD COUNT 7.3 10^3/ul (4.8-10.8)
[2018-11-26 06:16] LABS: BASOPHILS % 0.4 % (0.0-2.0); EOSINOPHILS # 0.1 10^3/ul (0.0-0.5); EOSINOPHILS % 0.8 % (0.0-7.0); HEMATOCRIT 26.3 % (37.0-47.0); HEMOGLOBIN 8.7 g/dl (12.0-16.0); LYMPHOCYTES # 1.1 10^3/ul (0.8-2.9); LYMPHOCYTES % 14.9 % (15.0-51.0); MEAN CORPUSCULAR HEMOGLOBIN 29.7 pg (29.0-33.0); MEAN CORPUSCULAR HGB CONC 33.1 g/dl (32.0-37.0); MEAN CORPUSCULAR VOLUME 89.8 fl (82.0-101.0); MEAN PLATELET VOLUME 9.8 fl (7.4-10.4); MONOCYTE # 0.9 10^3/ul (0.3-0.9); MONOCYTES % 11.9 % (0.0-11.0); NEUTROPHIL # 5.2 10^3/ul (1.6-7.5); NEUTROPHILS % 71.5 % (39.0-77.0); PLATELET COUNT 185 10^3/UL (140-415); RED BLOOD COUNT 2.93 10^6/ul (4.20-5.40); RED CELL DISTRIBUTION WIDTH 14.5 % (11.5-14.5)
[2018-11-26 06:46] LABS: ANION GAP 8 (5-13); BLOOD UREA NITROGEN 19 mg/dl (7-20); CALCIUM 8.1 mg/dl (8.4-10.2); CARBON DIOXIDE 26 mmol/L (21-31); CHLORIDE 102 mmol/L (97-110); CREATININE 0.93 mg/dl (0.44-1.00); GLUCOSE 145 mg/dl (70-220); MAGNESIUM 2.2 mg/dl (1.7-2.5); POTASSIUM 4.2 mmol/L (3.5-5.1); SODIUM 136 mmol/L (135-144)
[2018-11-26] MEDS: INSULIN ASPART [NOVOLOG] 3 ML PEN SC ×7 (07:55→21:00)
[2018-11-26] MEDS: BUDESONIDE (NEB) 0.5MG/2ML AMP HHN ×2 (08:48→19:58)
[2018-11-26] MEDS: FAMOTIDINE 20 MG TAB PO (09:35)
[2018-11-26] MEDS: AMLODIPINE 10 MG TAB PO (09:35)
[2018-11-26] MEDS: FERROUS SULFATE (EC) 325 MG TAB PO (09:35)
[2018-11-26] MEDS: ASPIRIN 325 MG TAB PO (09:35)
[2018-11-26] MEDS: GUAIFENESIN/CODEINE 5ML CUP PO (09:38)
[2018-11-26] MEDS: HYDROCODONE/APAP (5/325) TAB PO ×2 (09:38→14:05)
[2018-11-26] MEDS: AMOXICILLIN 500 MG CAP PO ×2 (14:05→21:22)
[2018-11-26] MEDS ORDERED: LEVALBUTEROL (NEB) 1.25 MG/0.5 ML AMP HHN (15:00)
[2018-11-26] MEDS: IPRATROPIUM (NEB) 0.5 MG/2.5 ML AMP HHN (19:58)
[2018-11-26] MEDS: LEVALBUTEROL (NEB) 1.25 MG/0.5 ML AMP HHN (19:58)
[2018-11-26] MEDS: ATORVASTATIN 40 MG TAB PO (21:22)
[2018-11-26] MEDS: LOSARTAN 50 MG TAB PO (21:24)
[2018-11-26] MEDS: INSULIN GLARGINE [LANTus] (100 UNITS/ML) SYG SC (21:45)
[2018-11-27] MEDS: LEVALBUTEROL (NEB) 1.25 MG/0.5 ML AMP HHN ×4 (01:32→19:48)
[2018-11-27] MEDS: ACCU-CHEK XX (02:00)
[2018-11-27] MEDS: morphine 2 MG INJ IV (05:17)
[2018-11-27 06:20] LABS: ADD MAN DIFF? NO
[2018-11-27 06:24] LABS: BASOPHILS % 0.4 % (0.0-2.0); EOSINOPHILS # 0.1 10^3/ul (0.0-0.5); EOSINOPHILS % 1.1 % (0.0-7.0); HEMATOCRIT 27.1 % (37.0-47.0); HEMOGLOBIN 8.8 g/dl (12.0-16.0); LYMPHOCYTES # 1.3 10^3/ul (0.8-2.9); LYMPHOCYTES % 16.2 % (15.0-51.0); MEAN CORPUSCULAR HEMOGLOBIN 28.9 pg (29.0-33.0); MEAN CORPUSCULAR HGB CONC 32.5 g/dl (32.0-37.0); MEAN CORPUSCULAR VOLUME 89.1 fl (82.0-101.0); MEAN PLATELET VOLUME 9.8 fl (7.4-10.4); MONOCYTE # 0.7 10^3/ul (0.3-0.9); MONOCYTES % 8.5 % (0.0-11.0); NEUTROPHIL # 5.8 10^3/ul (1.6-7.5); NEUTROPHILS % 73.3 % (39.0-77.0); PLATELET COUNT 211 10^3/UL (140-415); RED BLOOD COUNT 3.04 10^6/ul (4.20-5.40); RED CELL DISTRIBUTION WIDTH 14.6 % (11.5-14.5)
[2018-11-27 06:24] LABS: WHITE BLOOD COUNT 7.9 10^3/ul (4.8-10.8)
[2018-11-27] MEDS: AMOXICILLIN 500 MG CAP PO ×3 (06:32→23:10)
[2018-11-27] MEDS: LEVOTHYROXINE 150 MCG TAB PO (06:32)
[2018-11-27] MEDS: LEVOFLOXACIN 250 MG TAB PO (06:32)
[2018-11-27] MEDS: FUROSEMIDE 20 MG INJ IV ×2 (06:33→17:56)
[2018-11-27 06:57] LABS: ANION GAP 7 (5-13); BLOOD UREA NITROGEN 26 mg/dl (7-20); CALCIUM 8.4 mg/dl (8.4-10.2); CARBON DIOXIDE 30 mmol/L (21-31); CHLORIDE 101 mmol/L (97-110); CREATININE 0.96 mg/dl (0.44-1.00); GLUCOSE 90 mg/dl (70-220); PHOSPHORUS 4.7 mg/dl (2.5-4.9); SODIUM 138 mmol/L (135-144)
[2018-11-27] MEDS: INSULIN ASPART [NOVOLOG] 3 ML PEN SC ×7 (07:55→20:40)
[2018-11-27] MEDS: IPRATROPIUM (NEB) 0.5 MG/2.5 ML AMP HHN ×3 (08:13→19:48)
[2018-11-27] MEDS: BUDESONIDE (NEB) 0.5MG/2ML AMP HHN ×2 (08:27→19:47)
[2018-11-27] MEDS ORDERED: FUROSEMIDE 20 MG TAB PO (09:00)
[2018-11-27] MEDS: FERROUS SULFATE (EC) 325 MG TAB PO (09:50)
[2018-11-27] MEDS: FAMOTIDINE 20 MG TAB PO (09:50)
[2018-11-27] MEDS: ASPIRIN 81 MG TAB PO (09:50)
[2018-11-27] MEDS: AMLODIPINE 10 MG TAB PO (09:51)
[2018-11-27] MEDS: ATORVASTATIN 40 MG TAB PO (20:58)
[2018-11-27] MEDS: LOSARTAN 50 MG TAB PO (20:58)
[2018-11-27] MEDS: INSULIN GLARGINE [LANTus] (100 UNITS/ML) SYG SC (21:04)
[2018-11-27] MEDS: HYDROCODONE/APAP (5/325) TAB PO (23:07)
[2018-11-28] MEDS: ACCU-CHEK XX ×2 (02:00→22:26)
[2018-11-28] MEDS: LEVALBUTEROL (NEB) 1.25 MG/0.5 ML AMP HHN ×4 (02:01→19:27)
[2018-11-28] MEDS: IPRATROPIUM (NEB) 0.5 MG/2.5 ML AMP HHN ×4 (02:02→19:27)
[2018-11-28 06:00] LABS: ADD MAN DIFF? NO
[2018-11-28] MEDS: AMOXICILLIN 500 MG CAP PO ×3 (06:05→22:13)
[2018-11-28] MEDS: FUROSEMIDE 20 MG INJ IV ×2 (06:05→17:41)
[2018-11-28] MEDS: LEVOFLOXACIN 250 MG TAB PO (06:05)
[2018-11-28] MEDS: LEVOTHYROXINE 150 MCG TAB PO (06:07)
[2018-11-28 06:23] LABS: WHITE BLOOD COUNT 5.6 10^3/ul (4.8-10.8)
[2018-11-28 06:23] LABS: BASOPHILS % 0.5 % (0.0-2.0); EOSINOPHILS # 0.2 10^3/ul (0.0-0.5); EOSINOPHILS % 2.7 % (0.0-7.0); HEMATOCRIT 26.9 % (37.0-47.0); HEMOGLOBIN 8.7 g/dl (12.0-16.0); LYMPHOCYTES # 1.4 10^3/ul (0.8-2.9); LYMPHOCYTES % 24.8 % (15.0-51.0); MEAN CORPUSCULAR HEMOGLOBIN 29.1 pg (29.0-33.0); MEAN CORPUSCULAR HGB CONC 32.3 g/dl (32.0-37.0); MEAN PLATELET VOLUME 9.5 fl (7.4-10.4); MONOCYTE # 0.7 10^3/ul (0.3-0.9); MONOCYTES % 11.7 % (0.0-11.0); NEUTROPHIL # 3.3 10^3/ul (1.6-7.5); NEUTROPHILS % 59.8 % (39.0-77.0); PLATELET COUNT 246 10^3/UL (140-415); RED BLOOD COUNT 2.99 10^6/ul (4.20-5.40); RED CELL DISTRIBUTION WIDTH 14.1 % (11.5-14.5)
[2018-11-28] MEDS: HYDROCODONE/APAP (5/325) TAB PO ×2 (06:24→17:40)
[2018-11-28 06:38] LABS: ANION GAP 8 (5-13); BLOOD UREA NITROGEN 27 mg/dl (7-20); CALCIUM 8.6 mg/dl (8.4-10.2); CARBON DIOXIDE 33 mmol/L (21-31); CHLORIDE 99 mmol/L (97-110); CREATININE 0.99 mg/dl (0.44-1.00); GLUCOSE 94 mg/dl (70-220); MAGNESIUM 1.9 mg/dl (1.7-2.5); PHOSPHORUS 4.9 mg/dl (2.5-4.9); POTASSIUM 3.9 mmol/L (3.5-5.1); SODIUM 140 mmol/L (135-144)
[2018-11-28] MEDS: INSULIN ASPART [NOVOLOG] 3 ML PEN SC ×7 (07:55→22:20)
[2018-11-28] MEDS: FERROUS SULFATE (EC) 325 MG TAB PO (08:43)
[2018-11-28] MEDS: FAMOTIDINE 20 MG TAB PO (08:43)
[2018-11-28] MEDS: ASPIRIN 81 MG TAB PO (08:43)
[2018-11-28] MEDS: AMLODIPINE 10 MG TAB PO (08:44)
[2018-11-28] MEDS: ENOXAPARIN 40 MG/0.4 ML SYG SC (08:59)
[2018-11-28] MEDS: BUDESONIDE (NEB) 0.5MG/2ML AMP HHN ×2 (09:00→19:27)
[2018-11-28] MEDS: LOSARTAN 50 MG TAB PO (22:13)
[2018-11-28] MEDS: ATORVASTATIN 40 MG TAB PO (22:13)
[2018-11-28] MEDS: INSULIN GLARGINE [LANTus] (100 UNITS/ML) SYG SC (22:24)
[2018-11-29] MEDS: LEVALBUTEROL (NEB) 1.25 MG/0.5 ML AMP HHN ×4 (02:05→19:55)
[2018-11-29] MEDS: IPRATROPIUM (NEB) 0.5 MG/2.5 ML AMP HHN ×4 (02:05→19:55)
[2018-11-29] MEDS: FUROSEMIDE 20 MG INJ IV ×2 (05:58→17:18)
[2018-11-29] MEDS: LEVOTHYROXINE 150 MCG TAB PO (06:00)
[2018-11-29] MEDS: AMOXICILLIN 500 MG CAP PO ×3 (06:01→21:20)
[2018-11-29] MEDS: LEVOFLOXACIN 250 MG TAB PO (06:01)
[2018-11-29 06:11] LABS: ADD MAN DIFF? NO
[2018-11-29 06:23] LABS: WHITE BLOOD COUNT 6.3 10^3/ul (4.8-10.8)
[2018-11-29 06:23] LABS: BASOPHILS % 0.6 % (0.0-2.0); EOSINOPHILS # 0.2 10^3/ul (0.0-0.5); EOSINOPHILS % 2.7 % (0.0-7.0); HEMATOCRIT 29.1 % (37.0-47.0); HEMOGLOBIN 9.3 g/dl (12.0-16.0); LYMPHOCYTES # 1.3 10^3/ul (0.8-2.9); LYMPHOCYTES % 20.8 % (15.0-51.0); MEAN CORPUSCULAR HEMOGLOBIN 28.9 pg (29.0-33.0); MEAN CORPUSCULAR VOLUME 90.4 fl (82.0-101.0); MEAN PLATELET VOLUME 9.1 fl (7.4-10.4); MONOCYTE # 0.7 10^3/ul (0.3-0.9); MONOCYTES % 10.7 % (0.0-11.0); NEUTROPHILS % 64.7 % (39.0-77.0); PLATELET COUNT 277 10^3/UL (140-415); RED BLOOD COUNT 3.22 10^6/ul (4.20-5.40)
[2018-11-29 07:05] LABS: ANION GAP 9 (5-13); BLOOD UREA NITROGEN 27 mg/dl (7-20); CALCIUM 8.6 mg/dl (8.4-10.2); CARBON DIOXIDE 33 mmol/L (21-31); CHLORIDE 97 mmol/L (97-110); CREATININE 0.96 mg/dl (0.44-1.00); GLUCOSE 59 mg/dl (70-220); MAGNESIUM 1.9 mg/dl (1.7-2.5); PHOSPHORUS 4.6 mg/dl (2.5-4.9); POTASSIUM 3.9 mmol/L (3.5-5.1); SODIUM 139 mmol/L (135-144)
[2018-11-29] MEDS: HYDROCODONE/APAP (5/325) TAB PO (07:13)
[2018-11-29] MEDS: BUDESONIDE (NEB) 0.5MG/2ML AMP HHN ×3 (07:45→19:56)
[2018-11-29] MEDS: INSULIN ASPART [NOVOLOG] 3 ML PEN SC ×7 (07:55→21:00)
[2018-11-29] MEDS: FERROUS SULFATE (EC) 325 MG TAB PO (08:15)
[2018-11-29] MEDS: ASPIRIN 81 MG TAB PO (08:15)
[2018-11-29] MEDS: AMLODIPINE 10 MG TAB PO (08:15)
[2018-11-29] MEDS: FAMOTIDINE 20 MG TAB PO (08:15)
[2018-11-29] MEDS: ENOXAPARIN 40 MG/0.4 ML SYG SC (08:28)
[2018-11-29] MEDS ORDERED: HYDROCODONE/APAP (10/325) TAB PO (11:00)
[2018-11-29] MEDS: GABAPENTIN 300 MG CAP PO ×2 (11:37→21:20)
[2018-11-29] MEDS: INSULIN GLARGINE [LANTus] (100 UNITS/ML) SYG SC (21:18)
[2018-11-29] MEDS: LOSARTAN 50 MG TAB PO (21:20)
[2018-11-29] MEDS: ATORVASTATIN 40 MG TAB PO (21:20)
[2018-11-29] MEDS: OXYCODONE/ACETAMINOPHEN (5/325) TAB PO (21:21)
[2018-11-29] MEDS: ACCU-CHEK XX (23:27)
[2018-11-30] MEDS: LEVALBUTEROL (NEB) 1.25 MG/0.5 ML AMP HHN ×4 (01:13→19:18)
[2018-11-30] MEDS: FUROSEMIDE 20 MG INJ IV (05:47)
[2018-11-30] MEDS: LEVOFLOXACIN 250 MG TAB PO (05:47)
[2018-11-30] MEDS: AMOXICILLIN 500 MG CAP PO ×2 (05:47→13:17)
[2018-11-30] MEDS: LEVOTHYROXINE 150 MCG TAB PO (05:47)
[2018-11-30 06:04] LABS: ADD MAN DIFF? NO
[2018-11-30 06:25] LABS: BASOPHILS % 0.5 % (0.0-2.0); EOSINOPHILS # 0.2 10^3/ul (0.0-0.5); EOSINOPHILS % 3.1 % (0.0-7.0); HEMATOCRIT 27.2 % (37.0-47.0); HEMOGLOBIN 8.6 g/dl (12.0-16.0); LYMPHOCYTES # 1.5 10^3/ul (0.8-2.9); MEAN CORPUSCULAR HEMOGLOBIN 28.2 pg (29.0-33.0); MEAN CORPUSCULAR HGB CONC 31.6 g/dl (32.0-37.0); MEAN CORPUSCULAR VOLUME 89.2 fl (82.0-101.0); MEAN PLATELET VOLUME 9.4 fl (7.4-10.4); MONOCYTE # 0.9 10^3/ul (0.3-0.9); MONOCYTES % 14.8 % (0.0-11.0); NEUTROPHIL # 3.3 10^3/ul (1.6-7.5); NEUTROPHILS % 55.9 % (39.0-77.0); PLATELET COUNT 277 10^3/UL (140-415); RED BLOOD COUNT 3.05 10^6/ul (4.20-5.40); RED CELL DISTRIBUTION WIDTH 14.2 % (11.5-14.5)
[2018-11-30 06:25] LABS: WHITE BLOOD COUNT 5.9 10^3/ul (4.8-10.8)
[2018-11-30 06:33] LABS: ANION GAP 9 (5-13); BLOOD UREA NITROGEN 36 mg/dl (7-20); CALCIUM 8.5 mg/dl (8.4-10.2); CARBON DIOXIDE 34 mmol/L (21-31); CHLORIDE 94 mmol/L (97-110); CREATININE 1.07 mg/dl (0.44-1.00); GLUCOSE 135 mg/dl (70-220); PHOSPHORUS 5.3 mg/dl (2.5-4.9); POTASSIUM 3.5 mmol/L (3.5-5.1); SODIUM 137 mmol/L (135-144)
[2018-11-30] MEDS: OXYCODONE/ACETAMINOPHEN (5/325) TAB PO (07:52)
[2018-11-30] MEDS: INSULIN ASPART [NOVOLOG] 3 ML PEN SC ×7 (07:57→21:00)
[2018-11-30] MEDS: ENOXAPARIN 40 MG/0.4 ML SYG SC (08:01)
[2018-11-30] MEDS: FERROUS SULFATE (EC) 325 MG TAB PO (08:01)
[2018-11-30] MEDS: ASPIRIN 81 MG TAB PO (08:01)
[2018-11-30] MEDS: FAMOTIDINE 20 MG TAB PO (08:01)
[2018-11-30] MEDS: GABAPENTIN 300 MG CAP PO ×3 (08:02→21:19)
[2018-11-30] MEDS: AMLODIPINE 10 MG TAB PO (08:05)
[2018-11-30] MEDS: IPRATROPIUM (NEB) 0.5 MG/2.5 ML AMP HHN ×3 (08:58→19:17)
[2018-11-30] MEDS: BUDESONIDE (NEB) 0.5MG/2ML AMP HHN ×2 (09:08→19:18)
[2018-11-30] MEDS: POLYETHYLENE GLYCOL 17 GM PACKET PO (17:40)
[2018-11-30] MEDS: FUROSEMIDE 20 MG TAB PO (17:40)
[2018-11-30] MEDS: ATORVASTATIN 40 MG TAB PO (21:20)
[2018-11-30] MEDS: LOSARTAN 50 MG TAB PO (21:20)
[2018-11-30] MEDS: ACCU-CHEK XX (21:27)
[2018-11-30] MEDS: INSULIN GLARGINE [LANTus] (100 UNITS/ML) SYG SC (21:27)
[2018-12-01] MEDS: LEVALBUTEROL (NEB) 1.25 MG/0.5 ML AMP HHN ×3 (01:23→13:32)
[2018-12-01] MEDS: FUROSEMIDE 20 MG TAB PO (05:52)
[2018-12-01] MEDS: LEVOTHYROXINE 150 MCG TAB PO (05:53)
[2018-12-01] MEDS: IPRATROPIUM (NEB) 0.5 MG/2.5 ML AMP HHN ×2 (08:00→13:32)
[2018-12-01] MEDS: INSULIN ASPART [NOVOLOG] 3 ML PEN SC ×4 (08:00→12:04)
[2018-12-01] MEDS: GABAPENTIN 300 MG CAP PO ×2 (08:42→14:07)
[2018-12-01] MEDS: FAMOTIDINE 20 MG TAB PO (08:42)
[2018-12-01] MEDS: FERROUS SULFATE (EC) 325 MG TAB PO (08:42)
[2018-12-01] MEDS: ASPIRIN 81 MG TAB PO (08:42)
[2018-12-01] MEDS: AMLODIPINE 10 MG TAB PO (08:43)
[2018-12-01] MEDS: ENOXAPARIN 40 MG/0.4 ML SYG SC (08:44)
[2018-12-01] MEDS: BUDESONIDE (NEB) 0.5MG/2ML AMP HHN (09:00)
[2018-12-01] MEDS: OXYCODONE/ACETAMINOPHEN (5/325) TAB PO (12:54)
[2018-12-01] MEDS: ACETAMINOPHEN 650MG/20.3ML CUP PO (14:07)
== END 2018-12-01 18:10 | DRG 252 ==
LOC: 6WM 11-05 06:21 → PP2 11-12 14:25 → TEL 11-22 17:38 → PP2 11-29 12:05 → E/R 20:00 → ICU 11-20 15:00 → PP2 11-05 18:57 → 6WM 23:53
PROVIDERS: Family Medicine
PROC: 047M3ZZ Dilation of Right Popliteal Artery, Percutaneous Approach (ICD-10-PCS; principal; 2018-11-04 20:19)
PROC: 0Y6P0Z1 Detachment at Right 1st Toe, High, Open Approach (ICD-10-PCS; 2018-11-04 20:19)
PROC: 06BP0ZZ Excision of Right Saphenous Vein, Open Approach (ICD-10-PCS; 2018-11-04 20:19)
PROC: 041 Lower Arteries, Bypass (ICD-10-PCS; 2018-11-04 20:19)
PROC: 0JBQ0ZZ Excision of Right Foot Subcutaneous Tissue and Fascia, Open Approach (ICD-10-PCS; 2018-11-04 20:19)
PROC: 0HXMXZZ Transfer Right Foot Skin, External Approach (ICD-10-PCS; 2018-11-04 20:19)
PROC: B410YZZ Fluoroscopy of Abdominal Aorta using Other Contrast (ICD-10-PCS; 2018-11-04 20:19)
PROC: 30233N1 Transfusion of Nonautologous Red Blood Cells into Peripheral Vein, Percutaneous Approach (ICD-10-PCS; 2018-11-04 20:19)
DX: E11.52 Type 2 diabetes mellitus with diabetic peripheral angiopathy with gangrene (principal); A48.0 Gas gangrene; J96.01 Acute respiratory failure with hypoxia; J18.9 Pneumonia, unspecified organism; I50.33 Acute on chronic diastolic (congestive) heart failure; D62 Acute posthemorrhagic anemia; L03.115 Cellulitis of right lower limb; M86.8X7 Other osteomyelitis, ankle and foot; E11.10 Type 2 diabetes mellitus with ketoacidosis without coma; E11.65 Type 2 diabetes mellitus with hyperglycemia; E11.621 Type 2 diabetes mellitus with foot ulcer; L97.519 Non-pressure chronic ulcer of other part of right foot with unspecified severity; Z79.4 Long term (current) use of insulin; I25.10 Atherosclerotic heart disease of native coronary artery without angina pectoris; E03.9 Hypothyroidism, unspecified; E78.5 Hyperlipidemia, unspecified; L03.031 Cellulitis of right toe; E66.01 Morbid (severe) obesity due to excess calories; Z68.29 Body mass index [BMI] 29.0-29.9, adult; I73.9 Peripheral vascular disease, unspecified; Z95.5 Presence of coronary angioplasty implant and graft; E11.42 Type 2 diabetes mellitus with diabetic polyneuropathy; I11.0 Hypertensive heart disease with heart failure
CPT/HCPCS: 36415; 36430; 36600; 37224; 71045; 71250; 73590; 73630; 73660; 73718; 75630; 80048; 80053; 80061; 80069; 81003; 82803; 82962; 83036; 83605; 83690; 83735; 83880; 84100; 84436; 84439; 84443; 84481; 85014; 85018; 85025; 85610; 85730; 86850; 86900; 86901; 86920; 87040-91; 87070; 87075; 87081; 87086; 87102; 88304; 88305; 88311; 93005; 93306; 93922; 93970; 94640; 94664; 96374; 96375; 97110; 97116; 97162; 97530; 99285-25